=== PATIENT | male | born 1945 | race Caucasian/White ===

== ENCOUNTER → 2018-02-03 | Day surgery (SDC) | payer MEDICARE ==
[2018-02-02 11:26] LABS: BASOPHILS # (AUTO) 0.1 (0.0-0.1); EOSINOPHILS # (AUTO) 0.3 (0.0-0.4); EOSINOPHILS % 4.4 % (0.0-6.0); HEMATOCRIT 39.5 % (38.2-49.6); HEMOGLOBIN 13.5 g/dL (14.0-18.0); LYMPHOCYTES # (AUTO) 1.3 (1.0-3.2); LYMPHOCYTES % 21.8 % (18.0-39.1); MEAN CORPUSCULAR HEMOGLOBIN 29.6 pg (28-32); MEAN CORPUSCULAR HGB CONC 34.2 g/dL (31-35); MEAN CORPUSCULAR VOLUME 86.6 fL (81-99); MONOCYTES # (AUTO) 0.7 (0.2-0.8); MONOCYTES % 11.2 % (4.4-11.3); NEUTROPHILS # (AUTO) 3.8 (2.1-6.9); NEUTROPHILS % 61.3 % (38.7-80.0); PLATELET COUNT 259 x10e3/uL (140-360); RED BLOOD COUNT 4.56 x10e6/uL (4.3-5.7); RED CELL DISTRIBUTION WIDTH 11.9 % (11.7-14.4)
[2018-02-02 11:49] LABS: ALBUMIN/GLOBULIN RATIO 1.3 (0.8-2.0); ANION GAP 12.2 mmol/L (8-16); CALCIUM 9.8 mg/dL (8.4-10.2); CHOL/HDL RATIO 4.3 (3.9-4.7); CREATININE, SERUM 1.86 mg/dL (0.72-1.25); POTASSIUM 4.2 mmol/L (3.5-5.1)
[~2018-02-03] VITALS: Ht 182.9 cm; Wt 93.0 kg
[~2018-02-03] MED LIST: ALPRAZOLAM 0.5 MG TAB ONE; AMLODIPINE BESYL5 MG PO; ASPIRIN 325 MG TAB ONE; DIPHENHYDRAMINE HCL 25 MG CAP ONE; FENTANYL CITRATE/PF 100MCG/2 ML INJ ONE; GLIPIZIDE-METF1 EAC2 PO; HEPARIN SOD (PORCINE) 1000 UNIT/ML 30ML ONE; HEPARIN SOD/SOD CHLORIDE 2,000 ML ONE; IOPAMIDOL 300MG/ML 100 ML INFUS..BTL IV ONE; LANTUS 3ML100 UNITS/ SQ; LIDOCAINE HCL 2% LOCAL 20 ML VIAL ONE; LOSARTAN-HCTZ1 EAC1 PO; METOPROLOL SUCC50 MG PO; MIDAZOLAM HCL 2 MG/2 ML VIAL ONE; NITROGLYCERIN/D5W 200 MCG/ML 250 ML ONE; OMEPRAZOLE40 MG PO; PRASUGREL 10 MG TAB ONE; PRAVASTATIN SOD20 MG PO; PROTAMINE SULFATE 10 MG/ML 5 ML VIAL ONE; SODIUM CHLORIDE 0.9% 100 ML 100 ML ONE; SODIUM CHLORIDE 0.9% 1000ML 1,000 ML ONE; SODIUM CHLORIDE 0.9% 500ML 0 ML ONE; VERAPAMIL HCL 2.5 MG/ML 2 ML VIAL ONE
--- NOTE | 2018-02-03 10:15 | Operative Report ---
DATE OF PROCEDURE: February 03, 2018 INDICATIONS: Peripheral arterial disease with critical limb ischemia of the left lower extremity. PROCEDURES PERFORMED 1. Third-order catheter placement with antegrade sheath placement from the left common artery to the left popliteal artery and unilateral extremity angiogram. 2. Additional third-order catheter replacement from the left femoral artery to the left dorsalis pedal artery with unilateral extremity angiogram. 3. Atherectomy and drug-coated balloon angioplasty of the left posterior tibial artery. 4. Secondary thrombectomy of the left posterior tibial artery. 5. Atherectomy and drug-coated balloon angioplasty of the left anterior tibial artery. COMPLICATIONS: None. BLOOD LOSS: 10 mL. RECOMMENDATIONS: Dual antiplatelet artery for at least 3 months. Access was obtained in the left femoral artery in an antegrade fashion. A 6-Malay, 23-cm sheath was placed. Angiography demonstrated minimal disease in the femoral popliteal arteries. Left anterior and posterior tibial artery had significant 90% stenosis with poor flow. A decision was made to intervene on the left anterior and posterior tibial arteries. The patient received 10,000 units of intra-arterial heparin. The lesions were crossed using a Glidewire. Orbital atherectomy of both anterior and posterior tibial arteries were performed sequentially. Angioplasty was then performed and 4 mm drug-coated balloons were performed. Large clots were visible. Thrombus in the left anterior tibial artery for which secondary manual aspiration thrombectomy was needed. Final angiography demonstrated excellent 3-vessel runoff to the left foot with a complete plantar arch. The patient received 100 mg of intravenous protamine for reversal of heparin effect. Sheath was discontinued. The patient will remain in the hospital for 6 hours and discharged home same day. Job#: [id number] DARIAN
== END | disposition home or self-care (01) ==
LOC: CATH LAB 06:43
PROVIDERS: ATTEND Internal Medicine Interventional Cardiology
DX: I70.208 Unspecified atherosclerosis of native arteries of extremities, other extremity (principal); I87.2 Venous insufficiency (chronic) (peripheral); E11.9 Type 2 diabetes mellitus without complications; Z01.812 Encounter for preprocedural laboratory examination; Z79.4 Long term (current) use of insulin
CPT/HCPCS: 36415; 37186; 37229; 80053; 80061; 85025; C1724; C1725 ×3; C1766; C1769 ×2; J1644; J2001; J2250; J2720; J7030; Q9967; 36140; 75710; 77002; 92924; 92925; J7040

== ENCOUNTER 2018-06-15 18:03 | Observation (INO) | payer MEDICARE ==
[~2018-06-15] VITALS: Ht 182.9 cm; Wt 93.9 kg
[~2018-06-15 18:03] MED LIST changes: -PLAVIX75 MG PO
[2018-06-15] MEDS ORDERED: SODIUM CHLORIDE 0.9% 1000ML 1,000 ML IV STA (18:48)
[2018-06-15] MEDS ORDERED: ASPIRIN 81 MG CHEW TAB PO ONE (19:00)
[2018-06-15] MEDS ORDERED: MORPHINE SULFATE 2 MG/ML SYR IV STA (21:30)
[2018-06-15] MEDS ORDERED: ONDANSETRON HCL INJ 2 MG/ML VIAL IV STA (21:30)
[2018-06-15] MEDS ORDERED: SODIUM CHLORIDE 0.9% 1000ML 1,000 ML ONE (21:49)
[2018-06-15 22:06] LABS: BASOPHILS # (AUTO) 0.1 (0.0-0.1); BASOPHILS % 0.5 % (0.0-1.0); EOSINOPHILS % 0.3 % (0.0-6.0); HEMATOCRIT 30.3 % (38.2-49.6); HEMOGLOBIN 9.8 g/dL (14.0-18.0); LYMPHOCYTES # (AUTO) 1.1 (1.0-3.2); MEAN CORPUSCULAR HEMOGLOBIN 28.7 pg (28-32); MEAN CORPUSCULAR HGB CONC 32.3 g/dL (31-35); MEAN CORPUSCULAR VOLUME 88.9 fL (81-99); MONOCYTES # (AUTO) 1.8 (0.2-0.8); MONOCYTES % 12.5 % (4.4-11.3); NEUTROPHILS # (AUTO) 11.1 (2.1-6.9); NEUTROPHILS % 77.9 % (38.7-80.0); PLATELET COUNT 456 x10e3/uL (140-360); RED BLOOD COUNT 3.41 x10e6/uL (4.3-5.7); RED CELL DISTRIBUTION WIDTH 12.7 % (11.7-14.4)
[2018-06-15 22:16] LABS: ALBUMIN 3.2 g/dL (3.5-5.0); ALBUMIN/GLOBULIN RATIO 0.8 (0.8-2.0)
[2018-06-15 22:22] LABS: CREATINE KINASE MB 1.8 ng/mL (0-5.0)
[2018-06-15 22:27] LABS: CALCIUM 9.6 mg/dL (8.4-10.2)
[2018-06-15] MEDS ORDERED: PLAVIX75 MG PO (22:37)
[2018-06-16] MEDS ORDERED: MORPHINE SULFATE 2 MG/ML SYR IV PRN (00:15)
[2018-06-16] MEDS ORDERED: ONDANSETRON HCL INJ 2 MG/ML VIAL IV PRN (00:15)
[2018-06-16] MEDS ORDERED: DEXTROSE 50% SYRINGE 50 ML IV PRN (00:15)
[2018-06-16] MEDS: INSULIN REGULAR, HUMAN 100 UNIT/1 ML 3ML VIAL SQ SCH ×4 (00:49→21:17)
[2018-06-16] MEDS: SODIUM CHLORIDE 0.9% 1000ML 1,000 ML IV SCH ×3 (03:00→16:09)
[2018-06-16 03:41] LABS: BILIRUBIN,URINE NEGATIVE (NEGATIVE); CLARITY,URINE CLEAR (CLEAR); COLOR,URINE YELLOW (YELLOW); KETONES,URINE TRACE (NEGATIVE); LEUKOCYTE ESTERASE ,URINE NEGATIVE (NEGATIVE); NITRITE,URINE NEGATIVE (NEGATIVE); PROTEIN,URINE DIPSTICK 1+ (NEGATIVE); URINE UROBILINOGEN 0.2 mg/dL (0.2 - 1)
[2018-06-16 03:48] LABS: BACTERIA,URINE FEW /HPF; EPITHELIAL CELLS,URINE RARE /LPF; RBC,URINE 0-5 /HPF (0-5); WBC,URINE (MAN) 0-5 /HPF (0-5)
[2018-06-16 06:40] LABS: CREATINE KINASE MB 1.5 ng/mL (0-5.0)
[2018-06-16] MEDS: LOSARTAN POTASSIUM 100 MG TAB PO SCH (08:30)
[2018-06-16] MEDS: PANTOPRAZOLE SOD 40 MG TABEC PO SCH (08:30)
[2018-06-16] MEDS: METOPROLOL SUCCINATE 50 MG TAB XL PO SCH (08:30)
[2018-06-16] MEDS ORDERED: AMLODIPINE BESYLATE 5 MG TAB PO SCH (09:00)
[2018-06-16] MEDS ORDERED: HYDROCHLOROTHIAZIDE 25 MG TAB PO SCH (09:00)
[2018-06-16] MEDS ORDERED: MORPHINE SULFATE INJ 4 MG/ML INJ IV PRN (09:00)
[2018-06-16 14:00] VITALS: BP 158/73
[2018-06-16 15:22] VITALS: BP 158/73
[2018-06-16 16:00] VITALS: BP 140/67
[2018-06-16 16:14] LABS: CREATINE KINASE MB 2.1 ng/mL (0-5.0)
[2018-06-16] MEDS: DIPHENHYDRAMINE HCL INJ 50 MG/ML VIAL IV PRN (18:05)
[2018-06-16 20:00] VITALS: BP 180/86
--- NOTE | 2018-06-16 20:11 | Consultation ---
DATE OF CONSULTATION: June 16, 2018 CARDIOLOGY CONSULT NOTE REASON FOR CONSULTATION: Tachycardia. CHIEF COMPLAINT: "They told me my heart rate was too high and I should go to the hospital and get checked out for blood clot." HPI: Patient is a 73-year-old man, who was seen in our clinic yesterday for follow up of his vein ablation procedure done 3 months prior. When he presented to the clinic, he was noted to be tachycardic with heart rates in the 120s. Given that he has had a recent hip replacement, he was sent to the ER to get evaluated for possible pulmonary embolism. He denies any chest pain, shortness of breath or diaphoresis. PAST MEDICAL HISTORY 1. Venous insufficiency. 2. Hip osteoarthritis, status post hip replacement recently. 3. Hypertension. 4. Hyperlipidemia. SOCIAL HISTORY: Denies any smoking, alcohol or drug use. FAMILY HISTORY: No family history of early CAD or sudden cardiac . REVIEW OF SYSTEMS: Ten-point review of systems was performed described as above, otherwise negative. PHYSICAL EXAMINATION VITAL SIGNS: Temperature 98.4, pulse 85, respiratory rate 16, blood pressure 140/67, satting 98% on room air. GENERAL: Well-developed white male, in no acute distress. CARDIOVASCULAR: Regular rate and rhythm, normal S1, S2. No murmurs, rubs or gallops. Palpable carotid pulses. Palpable radial pulses left greater than right. Palpable pedal pulses. No lower extremity edema. Varicosities bilaterally, left greater than right. LUNGS: Clear to auscultation bilaterally. No respiratory distress. ABDOMEN: Soft, nontender, nondistended. No masses. NEURO AND PSYCH: Alert and oriented to person, place, and time. Normal affect. MEDICATIONS: Outpatient and inpatient medications reviewed. LABORATORY DATA: Reviewed. Notable for a white count of 14.23. Creatinine of 2.0, BUN of 29. On presentation, CK was 229 with negative troponins times 3. CK has since normalized after hydration. IMAGING DATA: Reviewed. V/Q scan with very low probability of PE. TELEMETRY DATA: Reviewed shows sinus tachycardia. ECG: Reviewed shows sinus tachycardia. ASSESSMENT AND PLAN 1. Sinus tachycardia. 2. Dehydration. 3. Possible urinary tract infection. 4. History of peripheral artery disease. 5. History of peripheral venous disease. PLAN: Patient's heart rate has improved significantly after hydration. Continue IV fluids. Cardiovascular exam is normal. No cardiovascular symptoms. At this time, V/Q scan was very low probability for pulmonary embolism. No further cardiovascular test recommended at this time. Treatment of possible infection per primary team. Will continue to follow. Thank you for this consult. Job#: [id number] CQ
[2018-06-16] MEDS: SIMVASTATIN 20 MG TAB PO SCH (20:58)
[2018-06-17] VITALS (7 sets, daily range): BP systolic 138–172; BP diastolic 65–77
[2018-06-17] MEDS: DIPHENHYDRAMINE HCL INJ 50 MG/ML VIAL IV PRN (00:50)
[2018-06-17] MEDS: SODIUM CHLORIDE 0.9% 1000ML 1,000 ML IV SCH ×2 (00:50→07:43)
[2018-06-17 03:29] LABS: BASOPHILS # (AUTO) 0.1 (0.0-0.1); BASOPHILS % 0.5 % (0.0-1.0); EOSINOPHILS # (AUTO) 0.1 (0.0-0.4); EOSINOPHILS % 1.3 % (0.0-6.0); HEMATOCRIT 25.4 % (38.2-49.6); HEMOGLOBIN 8.5 g/dL (14.0-18.0); LYMPHOCYTES # (AUTO) 1.3 (1.0-3.2); LYMPHOCYTES % 11.8 % (18.0-39.1); MEAN CORPUSCULAR HEMOGLOBIN 29.5 pg (28-32); MEAN CORPUSCULAR HGB CONC 33.5 g/dL (31-35); MEAN CORPUSCULAR VOLUME 88.2 fL (81-99); MONOCYTES # (AUTO) 1.5 (0.2-0.8); MONOCYTES % 13.7 % (4.4-11.3); NEUTROPHILS % 71.9 % (38.7-80.0); PLATELET COUNT 465 x10e3/uL (140-360); RED BLOOD COUNT 2.88 x10e6/uL (4.3-5.7); RED CELL DISTRIBUTION WIDTH 12.3 % (11.7-14.4)
[2018-06-17 03:41] LABS: MAGNESIUM 1.7 MG/DL (1.3-2.1)
[2018-06-17 03:50] LABS: ALBUMIN 2.7 g/dL (3.5-5.0); ALBUMIN/GLOBULIN RATIO 0.8 (0.8-2.0); ANION GAP 15.2 mmol/L (8-16); CALCIUM 8.9 mg/dL (8.4-10.2); CREATININE, SERUM 1.71 mg/dL (0.72-1.25); POTASSIUM 4.2 mmol/L (3.5-5.1)
[2018-06-17 04:10] LABS: FREE T4 (FREE THYROXINE) 0.89 ng/dL (0.9-1.8); THYROID STIMULATING HORMONE 1.351 uIU/mL (0.350-4.940)
[2018-06-17 04:48] LABS: B-TYPE NATRIURETIC PEPTIDE2 49.8 pg/mL (0-100)
--- NOTE | 2018-06-17 06:59 | Diagnostic Imaging Report ---
EXAMINATION: CHEST SINGLE (PORTABLE) INDICATION: Pneumonia. COMPARISON: None FINDINGS: TUBES and LINES: None. LUNGS: Lungs are well inflated. Lungs are clear. There is no evidence of pneumonia or pulmonary edema. PLEURA: No pleural effusion or pneumothorax. HEART AND MEDIASTINUM: The cardiomediastinal silhouette is unremarkable. BONES AND SOFT TISSUES: No acute osseous lesion. Soft tissues are unremarkable. UPPER ABDOMEN: No free air under the diaphragm. IMPRESSION: No acute thoracic abnormality. Signed by: Dr. Eusebio Gamez M.D. on 06/17/2018 6:56 AM
[2018-06-17] MEDS: LEVOFLOXACIN 500MG/D5W 100ML 100 ML IV SCH (07:42)
[2018-06-17] MEDS: METOPROLOL SUCCINATE 50 MG TAB XL PO SCH (08:45)
[2018-06-17] MEDS: PANTOPRAZOLE SOD 40 MG TABEC PO SCH (08:45)
[2018-06-17] MEDS: LOSARTAN POTASSIUM 100 MG TAB PO SCH (08:45)
[2018-06-17] MEDS ORDERED: AMLODIPINE BESYLATE 5 MG TAB PO SCH (09:00)
[2018-06-17] MEDS: INSULIN LISPRO 100 UNIT/1 ML 3ML VIAL SQ SCH ×4 (09:08→22:07)
--- NOTE | 2018-06-17 09:17 | Diagnostic Imaging Report ---
Exam: Head CT without contrast History: Altered mental status, possible CVA Comparison studies: None Technique: Axial images were obtained from the skull base to the vertex. Coronal and sagittal images reconstructed from the axial data. Radiation dose: Total DLP: 921 mGy*cm. Estimated effective dose: DLP x 0.015 Intravenous contrast: None Findings: Scalp: No abnormalities. Bones: No fractures, blastic or lytic lesions. Brain sulci: Mildly prominent. Ventricles: Mild compensatory dilatation. No hydrocephalus. Extra-axial spaces: No masses, no fluid collection. Parenchyma: No mass, acute hemorrhage or acute or chronic cortical vascular insults. Scattered hypodensities in the supratentorial white matter are nonspecific but most compatible with chronic microvascular ischemic changes. Sellar/suprasellar region: No abnormalities. Craniocervical junction: Patent foramen magnum. No Chiari one malformation. Incidental findings: Atherosclerotic calcifications in the carotid siphons and intradural vertebral arteries. Small nonspecific right frontoethmoidal secretions. IMPRESSION: No acute intracranial abnormalities. Specifically, no acute hemorrhage or acute cortical vascular insult. Chronic findings: 1. Mild generalized volume loss. 2. Mild microvascular ischemic changes. Signed by: Dr. Tom Roque M.D. on 06/17/2018 8:07 AM
--- NOTE | 2018-06-17 13:43 | Progress Note ---
DATE: June 17, 2018 Mr. Otero feels much better after intravenous hydration. Creatinine has improved to 1.7. PHYSICAL EXAMINATION VITALS: Afebrile, heart rate 83, blood pressure 158/72. CARDIOVASCULAR: Regular rhythm. S4 gallop. LUNGS: Clear to auscultation bilaterally. Telemetry shows sinus rhythm. ASSESSMENT: Dehydration with sinus tachycardia and possible sepsis. RECOMMENDATIONS: Continue IV fluids. Echocardiogram was performed in the office, which shows hyperdynamic LV function and normal right ventricular function. At this point, no further cardiac evaluation. Further evaluation performed in the office. Patient is stable for discharge from the cardiac standpoint. Job#: [id number] DARIAN
[2018-06-17] MEDS ORDERED: INSULIN DETEMIR 100 UNIT/ML PEN SQ SCH (21:00)
[2018-06-17] MEDS: SIMVASTATIN 20 MG TAB PO SCH (22:06)
[2018-06-17] MEDS: INSULIN DETEMIR 100 UNIT/ML PEN SQ SCH (22:07)
[2018-06-18] VITALS (9 sets, daily range): BP systolic 128–166; BP diastolic 66–78
[2018-06-18 05:43] LABS: ALBUMIN 2.6 g/dL (3.5-5.0); ANION GAP 14.9 mmol/L (8-16); BILIRUBIN,DIRECT 0.2 mg/dL (0.0-0.5); CALCIUM 9.1 mg/dL (8.4-10.2); CREATININE, SERUM 1.73 mg/dL (0.72-1.25); MAGNESIUM 1.7 MG/DL (1.3-2.1); POTASSIUM 3.9 mmol/L (3.5-5.1)
[2018-06-18 06:20] LABS: FOLATE 15.7 ng/mL (7.0-15.4)
[2018-06-18] MEDS: SODIUM CHLORIDE 0.9% 1000ML 1,000 ML IV SCH (06:22)
[2018-06-18] MEDS: LEVOFLOXACIN 500MG/D5W 100ML 100 ML IV SCH (06:22)
[2018-06-18 06:38] LABS: BASOPHILS % 0.4 % (0.0-1.0); EOSINOPHILS # (AUTO) 0.3 (0.0-0.4); EOSINOPHILS % 2.5 % (0.0-6.0); HEMATOCRIT 25.8 % (38.2-49.6); HEMOGLOBIN 8.4 g/dL (14.0-18.0); LYMPHOCYTES # (AUTO) 1.2 (1.0-3.2); MEAN CORPUSCULAR HGB CONC 32.6 g/dL (31-35); MONOCYTES # (AUTO) 1.4 (0.2-0.8); MONOCYTES % 13.2 % (4.4-11.3); NEUTROPHILS # (AUTO) 7.3 (2.1-6.9); PLATELET COUNT 494 x10e3/uL (140-360); RED CELL DISTRIBUTION WIDTH 12.4 % (11.7-14.4)
[2018-06-18 06:57] LABS: % IRON SATURATION 9 % (15-50); IRON 24 ug/dL (65-175); TOTAL IRON BINDING CAPACITY 267 ug/dL (261-478); TRANSFERRIN 191 mg/dL (174-364)
[2018-06-18] MEDS: INSULIN LISPRO 100 UNIT/1 ML 3ML VIAL SQ SCH ×4 (09:20→21:29)
[2018-06-18] MEDS: LOSARTAN POTASSIUM 100 MG TAB PO SCH (10:18)
[2018-06-18] MEDS: METOPROLOL SUCCINATE 50 MG TAB XL PO SCH (10:19)
[2018-06-18] MEDS: ASCORBIC ACID 500 MG TAB PO SCH ×2 (10:19→16:35)
[2018-06-18] MEDS: NIFEDIPINE CR 30 MG TAB PO SCH (10:19)
[2018-06-18] MEDS: PANTOPRAZOLE SOD 40 MG TABEC PO SCH (10:19)
--- NOTE | 2018-06-18 15:04 | Progress Note ---
DATE: June 18, 2018 CARDIOLOGY PROGRESS NOTE SUBJECTIVE: Mr. Otero is asymptomatic. He has been walking in the hallway. OBJECTIVE VITAL SIGNS: Afebrile. Heart rate 74. Blood pressure 149/69. O2 sat 99%. CARDIOVASCULAR: Regular rhythm. S4 gallop. LUNGS: Clear to auscultation bilaterally. ABDOMEN: Is soft. EXTREMITIES: 1+ edema. Hemoglobin 8.4. Serum creatinine 1.7. ASSESSMENT: 1. Dehydration. 2. Acute renal failure. PLAN: Cardiac-vasquez the patient is doing well. His sinus tachycardia has resolved. He is stable for discharge when okay with primary care physician. Job#: [id number]
[2018-06-18] MEDS: FERROUS SULFATE 325 MG TAB PO SCH (16:35)
[2018-06-18] MEDS: SIMVASTATIN 20 MG TAB PO SCH (21:28)
[2018-06-18] MEDS: INSULIN DETEMIR 100 UNIT/ML PEN SQ SCH (21:29)
[2018-06-19] MEDS: DIPHENHYDRAMINE HCL INJ 50 MG/ML VIAL IV PRN (00:23)
[2018-06-19 00:41] VITALS: BP 154/72
[2018-06-19 04:25] VITALS: BP 147/76
[2018-06-19 05:16] LABS: BASOPHILS # (AUTO) 0.1 (0.0-0.1); BASOPHILS % 0.6 % (0.0-1.0); EOSINOPHILS # (AUTO) 0.3 (0.0-0.4); EOSINOPHILS % 3.3 % (0.0-6.0); HEMATOCRIT 26.5 % (38.2-49.6); HEMOGLOBIN 8.7 g/dL (14.0-18.0); LYMPHOCYTES # (AUTO) 1.2 (1.0-3.2); LYMPHOCYTES % 12.1 % (18.0-39.1); MEAN CORPUSCULAR HEMOGLOBIN 28.8 pg (28-32); MEAN CORPUSCULAR HGB CONC 32.8 g/dL (31-35); MEAN CORPUSCULAR VOLUME 87.7 fL (81-99); MONOCYTES # (AUTO) 1.2 (0.2-0.8); MONOCYTES % 12.4 % (4.4-11.3); NEUTROPHILS % 70.6 % (38.7-80.0); PLATELET COUNT 539 x10e3/uL (140-360); RED BLOOD COUNT 3.02 x10e6/uL (4.3-5.7); RED CELL DISTRIBUTION WIDTH 12.2 % (11.7-14.4)
[2018-06-19 05:43] LABS: ANION GAP 13.9 mmol/L (8-16); CALCIUM 9.3 mg/dL (8.4-10.2); CREATININE, SERUM 1.74 mg/dL (0.72-1.25); MAGNESIUM 1.8 MG/DL (1.3-2.1); POTASSIUM 3.9 mmol/L (3.5-5.1)
[2018-06-19] MEDS: INSULIN LISPRO 100 UNIT/1 ML 3ML VIAL SQ SCH (07:30)
[2018-06-19 07:39] VITALS: BP 155/74
[2018-06-19] MEDS: LEVOFLOXACIN 500MG/D5W 100ML 100 ML IV SCH (08:04)
[2018-06-19] MEDS: FERROUS SULFATE 325 MG TAB PO SCH (08:04)
[2018-06-19] MEDS ORDERED: NIFEDIPINE ER30 M1 PO (08:31)
[2018-06-19] MEDS ORDERED: FERROUS SULFAT325 MG PO (08:31)
[2018-06-19] MEDS ORDERED: ASCORBIC ACID500 MG PO (08:31)
[2018-06-19] MEDS ORDERED: LEVAQUIN500 MG PO (08:31)
[2018-06-19] MEDS: METOPROLOL SUCCINATE 50 MG TAB XL PO SCH (08:54)
[2018-06-19] MEDS: LOSARTAN POTASSIUM 100 MG TAB PO SCH (08:54)
[2018-06-19] MEDS: ASCORBIC ACID 500 MG TAB PO SCH (08:54)
[2018-06-19] MEDS: PANTOPRAZOLE SOD 40 MG TABEC PO SCH (08:54)
[2018-06-19] MEDS: NIFEDIPINE CR 30 MG TAB PO SCH (08:54)
[2018-06-19 11:01] VITALS: BP_SYST 142; BP_SYST 155; BP_DIAS 65; BP_DIAS 74
--- NOTE | 2018-06-19 16:34 | Discharge Summary ---
ADMISSION DIAGNOSES 1. Tachycardia. 2. Hypertension. 3. Hyperlipidemia. 4. Type 2 diabetes. 5. Acute kidney injury versus chronic kidney disease. 6. Hyponatremia. 7. Leukocytosis. DISCHARGE DIAGNOSES 1. Tachycardia. 2. Hypertension. 3. Hyperlipidemia. 4. Type 2 diabetes. 5. Acute kidney injury versus chronic kidney disease. 6. Hyponatremia. 7. Leukocytosis. 8. Urinary tract infection. 9. Anemia. 10. Ruled out pulmonary embolism. HISTORY: Patient has a history of type 2 diabetes, hyperlipidemia, GERD, hypertension. Surgical history of appendectomy, right hip replacement and left total knee replacement. HOSPITAL COURSE: A 73-year-old male had right hip surgery last . The following Tuesday, he started to feel not right. He could not explain his symptoms. He denied chest pain, dizziness, shortness of breath, palpitations. He had a followup appointment with Dr. Patel for what he explained as an angioplasty. It was his 3-month appointment. He was told to go straight to the ER by Dr. Patel because his heart rate was in the 200s. Patient remained asymptomatic. On admission patient was placed on telemetry, was running sinus rhythm. He had a V/Q scan which was negative. TSH and free T4 were within normal limits. Patient started on metoprolol, and Cardiology consulted. Chest x-ray showed no acute abnormality. CT of the brain showed no acute intracranial abnormalities. Per Cardiology, due to the normal sinus rhythm and negative V/Q scan, the patient could discharge home, but patient was found to have enterococcus in his urine. Blood cultures were negative. Patient discharged home after finding the urine culture results. He was resumed on home medications except Norvasc. Instead, he will take nifedipine at home. He will discharge with 4 more days of Levaquin, iron, vitamin C and nifedipine. Patient was instructed to follow up with Cardiology this week as discussed and Primary Care in 1 to 2 weeks with a blood pressure log. Patient and understand discharge instructions and agree to plan. Dictated by: Lima Moralez NP MELECIO MAURO MD Job#: [id number] EV
== END 2018-06-19 11:28 | disposition home or self-care (01) ==
LOC: ER 18:03 → ERHOLD 06-16 00:09 → IMCU 06-16 14:07
PROVIDERS: ADMIT Internal Medicine; ATTEND Internal Medicine
DX: R00.0 Tachycardia, unspecified (principal); I12.9 Hypertensive chronic kidney disease with stage 1 through stage 4 chronic kidney disease, or unspecified chronic kidney disease; Z96.642 Presence of left artificial hip joint; E78.5 Hyperlipidemia, unspecified; K21.9 Gastro-esophageal reflux disease without esophagitis; Z88.0 Allergy status to penicillin; E87.1 Hypo-osmolality and hyponatremia; I73.9 Peripheral vascular disease, unspecified; E86.0 Dehydration; N17.9 Acute kidney failure, unspecified; D64.9 Anemia, unspecified; D72.829 Elevated white blood cell count, unspecified; N39.0 Urinary tract infection, site not specified; E11.22 Type 2 diabetes mellitus with diabetic chronic kidney disease; N18.9 Chronic kidney disease, unspecified
CPT/HCPCS: 36415 ×4; 70450; 71045; 80048 ×2; 80053 ×2; 80076; 81001; 82140; 82270; 82550 ×2; 82553 ×2; 82607; 82746; 82948 ×4; 83036; 83540; 83735 ×3; 83880; 84439; 84443; 84466; 84484 ×2; 85025 ×4; 87040; 87086; 87186; 87400; 93005; 96372; 96374; 96376; 97116; 97161; 99285; G0378 ×4; J1200 ×3; J1956 ×3; J2270; J2405; J7030 ×4; S0164 ×4

== ENCOUNTER → 2018-06-15 | Outpatient (CLI) | payer MEDICARE ==
[~2018-06-15] MED LIST changes: -ALPRAZOLAM 0.5 MG TAB ONE; -ASPIRIN 325 MG TAB ONE; -DIPHENHYDRAMINE HCL 25 MG CAP ONE; -FENTANYL CITRATE/PF 100MCG/2 ML INJ ONE; -HEPARIN SOD (PORCINE) 1000 UNIT/ML 30ML ONE; -HEPARIN SOD/SOD CHLORIDE 2,000 ML ONE; -IOPAMIDOL 300MG/ML 100 ML INFUS..BTL IV ONE; -LIDOCAINE HCL 2% LOCAL 20 ML VIAL ONE; -MIDAZOLAM HCL 2 MG/2 ML VIAL ONE; -NITROGLYCERIN/D5W 200 MCG/ML 250 ML ONE; +PLAVIX75 MG PO; -PRASUGREL 10 MG TAB ONE; -PROTAMINE SULFATE 10 MG/ML 5 ML VIAL ONE; -SODIUM CHLORIDE 0.9% 100 ML 100 ML ONE; -SODIUM CHLORIDE 0.9% 1000ML 1,000 ML ONE; -SODIUM CHLORIDE 0.9% 500ML 0 ML ONE; -VERAPAMIL HCL 2.5 MG/ML 2 ML VIAL ONE
[2018-06-15 13:14] LABS: CREATININE, SERUM 2.04 mg/dL (0.72-1.25)
--- NOTE | 2018-06-15 17:29 | Diagnostic Imaging Report ---
Ventilation/perfusion lung scan Clinical Information: 73 M 1 week s/p hip replacement with SOB and generalized weakness x 3 days. Has prior history of PE. Patient is on Plavix for hip replacement and upcoming lower extremity vascular procedure. Comparison: None Discussion: Xenon-133 gas 20 mCi was administered via inhalation. Dynamic images of the lungs in the posterior projection were obtained through single breath, equilibrium, and washout phases. Distribution of tracer activity is mildly irregular throughout the lungs. There are no segmental ventilatory defects. Washout of tracer is diffusely delayed without air trapping. Perfusion images of the lungs were obtained in multiple projections following intravenous administration of approximately 6.3 mCi of Tc-99m MAA. Distribution of tracer is mildly irregular throughout the lungs. The contours of the lungs are well demarcated. There are no segmental perfusion defects of any size. The cardiomediastinal silhouette is unremarkable. Impression: Scan findings represent a VERY LOW probability for acute pulmonary embolic disease based on the PIOPED II criteria. Scan evidence of obstructive lung disease. Preliminary report was rendered at 515 pm by Tonya Guzman MD. Signed by: Dr. Yamini Rodas M.D. on 06/15/2018 7:03 PM
== END ==
LOC: CT 12:17
PROVIDERS: ATTEND Internal Medicine Interventional Cardiology
DX: I26.99 Other pulmonary embolism without acute cor pulmonale (principal)
CPT/HCPCS: 36415; 78582; 82565; 84520; A9540; A9558; 82948

== ENCOUNTER → 2018-07-10 | Day surgery (SDC) | payer MEDICARE ==
[2018-07-07 13:50] LABS: BASOPHILS # (AUTO) 0.1 (0.0-0.1); BASOPHILS % 0.7 % (0.0-1.0); EOSINOPHILS # (AUTO) 0.3 (0.0-0.4); EOSINOPHILS % 3.6 % (0.0-6.0); HEMATOCRIT 31.3 % (38.2-49.6); HEMOGLOBIN 10.1 g/dL (14.0-18.0); LYMPHOCYTES # (AUTO) 1.1 (1.0-3.2); LYMPHOCYTES % 16.1 % (18.0-39.1); MEAN CORPUSCULAR HEMOGLOBIN 28.9 pg (28-32); MEAN CORPUSCULAR HGB CONC 32.3 g/dL (31-35); MEAN CORPUSCULAR VOLUME 89.4 fL (81-99); MONOCYTES # (AUTO) 0.6 (0.2-0.8); MONOCYTES % 9.2 % (4.4-11.3); NEUTROPHILS # (AUTO) 4.9 (2.1-6.9); NEUTROPHILS % 70.1 % (38.7-80.0); PLATELET COUNT 329 x10e3/uL (140-360); RED CELL DISTRIBUTION WIDTH 12.3 % (11.7-14.4)
[2018-07-07 14:14] LABS: ALBUMIN 3.4 g/dL (3.5-5.0); ANION GAP 16.3 mmol/L (8-16); CALCIUM 9.6 mg/dL (8.4-10.2); CHOL/HDL RATIO 4.8 (3.9-4.7); CREATININE, SERUM 1.88 mg/dL (0.72-1.25)
[2018-07-07 14:15] LABS: POTASSIUM 5.3 mmol/L (3.5-5.1)
[2018-07-10] VITALS (12 sets, daily range): BP systolic 136–165; BP diastolic 66–95
[~2018-07-10] VITALS: Ht 182.9 cm; Wt 89.8 kg
[~2018-07-10] MED LIST changes: +ALPRAZOLAM 0.5 MG TAB ONE; +ASCORBIC ACID500 MG PO; +DIPHENHYDRAMINE HCL 25 MG CAP ONE; +FENTANYL CITRATE/PF 100MCG/2 ML INJ ONE; +FERROUS SULFAT325 MG PO; +HEPARIN SOD (PORCINE) 1000 UNIT/ML 30ML ONE; +HEPARIN SOD/SOD CHLORIDE 2,000 ML ONE; +IOPAMIDOL 370 MG/ML 200 ML INFUS..BTL INJ ONE; +LEVAQUIN500 MG PO; +LIDOCAINE HCL 2% LOCAL 20 ML VIAL ONE; +MIDAZOLAM HCL 2 MG/2 ML VIAL ONE; +NIFEDIPINE ER30 M1 PO; +NITROGLYCERIN/D5W 200 MCG/ML 250 ML ONE; +PLAVIX75 MG PO; +PRASUGREL 10 MG TAB ONE; +SODIUM CHLORIDE 0.9% 1000ML 1,000 ML ONE; +VERAPAMIL HCL 2.5 MG/ML 2 ML VIAL ONE
--- NOTE | 2018-07-10 14:55 | Operative Report ---
DATE OF PROCEDURE: July 10, 2018 INDICATIONS: Coronary artery disease. Abnormal stress test with apical ischemia. PROCEDURES PERFORMED 1. Left heart catheterization, selective coronary angiogram. 1. Percutaneous transluminal coronary angioplasty and stent placement to the proximal left anterior descending artery. 2. Deployment of right wrist transradial band. COMPLICATIONS: None. RECOMMENDATIONS: Dual antiplatelet therapy for at least 6 months. Access was obtained in the right radial artery using ultrasound guidance. A 5-Tongan sheath was placed. Diagnostic coronary angiogram revealed a patent left main, left anterior descending artery moderately calcified, proximal 70% stenosis. The remaining diagonal arteries, remaining left anterior descending arteries, circumflex obtuse marginal, right coronary artery had mild 10% to 20% luminal stenosis. LV end-diastolic pressure of 14. No gradient across the aortic valve on pullback. Decision was made to intervene on the left anterior descending artery. The patient received 10,000 units of intra-arterial heparin and 60 mg of oral Effient for anticoagulation. The left main was cannulated using an EBU 3.75, 5-Tongan guiding catheter. A short Runthrough wire was advanced across the left anterior descending artery lesion to the distal vessel for support. Primary stent with a 2.75 x 20 mm Resolute [place] was performed at 12 atmospheres postdilatation to the mid and proximal ends of the stent with a 3 mm balloon at 18 to 24 atmospheres with excellent end result of less than 10% residual stenosis, [place]AS[place]Y 3 flow, no complications. Guide wire and sheath were removed, TR band applied. Patient will be observed in the hospital for 6 hours prior to being discharged home. Job#: [id number] EV
== END | disposition home or self-care (01) ==
LOC: CATH LAB 10:42
PROVIDERS: ATTEND Internal Medicine Interventional Cardiology
DX: I25.10 Atherosclerotic heart disease of native coronary artery without angina pectoris (principal); R94.39 Abnormal result of other cardiovascular function study; E78.00 Pure hypercholesterolemia, unspecified; R03.0 Elevated blood-pressure reading, without diagnosis of hypertension; E11.9 Type 2 diabetes mellitus without complications; Z88.0 Allergy status to penicillin; Z01.812 Encounter for preprocedural laboratory examination; Z79.4 Long term (current) use of insulin
CPT/HCPCS: 93458; C9600; 36415; 80053; 80061; 85025; 92928; C1817; J1644; J2001; J2250; J7030; Q9967

== ENCOUNTER 2019-04-19 17:26 | Inpatient (IN) | payer MEDICARE ==
[~2019-04-19] VITALS: Ht 182.9 cm; Wt 89.8 kg
[~2019-04-19 17:26] MED LIST changes: -ALPRAZOLAM 0.5 MG TAB ONE; -DIPHENHYDRAMINE HCL 25 MG CAP ONE; -FENTANYL CITRATE/PF 100MCG/2 ML INJ ONE; -HEPARIN SOD (PORCINE) 1000 UNIT/ML 30ML ONE; -HEPARIN SOD/SOD CHLORIDE 2,000 ML ONE; -IOPAMIDOL 370 MG/ML 200 ML INFUS..BTL INJ ONE; -LIDOCAINE HCL 2% LOCAL 20 ML VIAL ONE; -MIDAZOLAM HCL 2 MG/2 ML VIAL ONE; -NITROGLYCERIN/D5W 200 MCG/ML 250 ML ONE; -PRASUGREL 10 MG TAB ONE; -SODIUM CHLORIDE 0.9% 1000ML 1,000 ML ONE; -VERAPAMIL HCL 2.5 MG/ML 2 ML VIAL ONE
--- OUTSIDE RECORDS SUMMARY | 2019-04-19 17:29 | XMS REPORT | Clinical Summary ---
Author Author [facility] Organization [facility] Address Unknown Phone Unavailable Care Team Providers Care Dimensional Inspector Name Role Phone Delio Heredia MD PCP Allergies No Known Allergies Medications End Date Status Medication Sig Dispensed Refills Start Date Active amLODIPine (NORVASC) 5 mg TAKE ONE (1) tablet TABLET(S) BY 7 MOUTH ONCE A DAY. Active glipizide-metformin TAKE ONE (1) 3 (METAGLIP) 5-500 mg per TABLET(S) BY 7 tablet MOUTH THREE TIMES A DAY. Active LANTUS 100 unit/mL INJECT 90 3 injection (vial) UNITS 7 DIRECTED ONCE DAILY. Active losartan-hydrochlorothiaz TAKE ONE (1) 3 chikis (HYZAAR) 100-25 mg TABLET(S) BY 7 per tablet MOUTH ONCE A DAY. Active metoprolol succinate XL Take 200 mg 3 (TOPROL-XL) 200 mg 24 hr by mouth once 7 tablet daily. Active omeprazole (PriLOSEC) 20 TAKE ONE (1) 4 MG capsule CAPSULE(S) BY 7 MOUTH ONCE A DAY. Active pravastatin (PRAVACHOL) TAKE ONE (1) 3 20 MG tablet TABLET(S) BY 7 MOUTH AT BEDTIME. Active ondansetron (ZOFRAN, Take 1 tablet 20 tablet 0 HYDROCHLORIDE,) 4 MG (4 mg total) 7 tabletIndications: by mouth Complete tear of left every 8 rotator cuff (eight) hours as needed for nausea or vomiting. Active Problems Problem Noted Date Complete tear of left rotator cuff 04/06/2017 Left shoulder pain 03/24/2017 Family History Medical History Relation Name Comments Diabetes Maternal Grandmother Relation Name Status Comments Maternal Grandmother Social History Date Tobacco Use Types Packs/Day Years Used Never Smoker Smokeless Tobacco: Never Used Alcohol Use Drinks/Week oz/Week Comments No Sex Assigned at Date Recorded Not on file Industry Job Start Date Occupation Not on file Not on file Not on file Travel End Travel History Travel Start No recent travel history available. Last Filed Vital Signs Not on file Plan of Treatment Health Maintenance Due Date Last Done Comments COLONOSCOPY SCREENING 1995 SHINGLES VACCINES (#1) 1995 65+ PNEUMOCOCCAL VACCINE 2010 (1 of 2 - PCV13) INFLUENZA VACCINE 05/31/2019 Implants Device Identifier Shelf Expiration Date Model / Serial / Lot Implanted Type Area Manufactur er 11/30/2018 LYSSA 1927B 45 / / [id number] Dexter Sut Corkscrew Ft Biocmpst W/ Orthopedic N/A: N/A ARTHREX Two Sz 2 Fibrwr 4.5x15mm - [employer] [id number] Implants Implanted: 04/22/2017 (Quantity not on file) 11/30/2018 LYSSA 1927B 45 / / [id number] Dexter Sut Corkscrew Ft Biocmpst W/ Orthopedic N/A: N/A ARTHREX Two Sz 2 Fibrwr 4.5x15mm - [employer] [id number] Implants Implanted: 04/22/2017 (Quantity not on file) 11/30/2018 LYSSA 1927B 45 / / [id number] Dexter Sut Corkscrew Ft Biocmpst W/ Orthopedic N/A: N/A ARTHREX Two Sz 2 Fibrwr 4.5x15mm - [employer] [id number] Implants Implanted: 04/22/2017 (Quantity not on file) 12/28/2018 LYSSA 2324BCC / / [id number] Dexter Sut Swivelock Biocmpst C Orthopedic N/A: N/A ARTHREX Vntd 4.75x19.1mm - [id number] [employer] Implanted: 04/22/2017 (Quantity not Implants on file) 12/28/2018 LYSSA 2324BCC / / [id number] Dexter Sut Swivelock Biocmpst C Orthopedic N/A: N/A ARTHREX Vntd 4.75x19.1mm - [id number] [employer] Implanted: 04/22/2017 (Quantity not Implants on file) Results Not on fileafter 04/18/2018 Insurance Type Payer Benefit Subscriber ID Effective Phone Address Plan / Dates Group Medicare MEDICARE MEDICARE xxxxxxxxxx 2010-P [place], PART A AND resent [place] B Commercial AARP AARP xxxxxxxxxxx 2011-P SUPPLEMENT resent Advance Directives Patient has advance care planning documents on file. For more information, jamar basilio contact: Bassem Puente [address] [place] [address]
[2019-04-19 18:38] LABS: BASOPHILS % 0.5 % (0.0-1.0); EOSINOPHILS # (AUTO) 0.2 (0.0-0.4); EOSINOPHILS % 2.8 % (0.0-6.0); HEMOGLOBIN 11.6 g/dL (14.0-18.0); LYMPHOCYTES # (AUTO) 1.1 (1.0-3.2); LYMPHOCYTES % 14.4 % (18.0-39.1); MEAN CORPUSCULAR HEMOGLOBIN 29.1 pg (28-32); MEAN CORPUSCULAR HGB CONC 33.1 g/dL (31-35); MEAN CORPUSCULAR VOLUME 87.9 fL (81-99); MONOCYTES # (AUTO) 0.9 (0.2-0.8); MONOCYTES % 11.1 % (4.4-11.3); NEUTROPHILS # (AUTO) 5.5 (2.1-6.9); NEUTROPHILS % 70.9 % (38.7-80.0); PLATELET COUNT 397 x10e3/uL (140-360); RED BLOOD COUNT 3.98 x10e6/uL (4.3-5.7); RED CELL DISTRIBUTION WIDTH 11.9 % (11.7-14.4)
[2019-04-19 18:49] LABS: BILIRUBIN,URINE NEGATIVE (NEGATIVE); CLARITY,URINE CLEAR (CLEAR); COLOR,URINE YELLOW (YELLOW); KETONES,URINE NEGATIVE (NEGATIVE); LEUKOCYTE ESTERASE ,URINE NEGATIVE (NEGATIVE); NITRITE,URINE NEGATIVE (NEGATIVE); PROTEIN,URINE DIPSTICK TRACE (NEGATIVE); URINE UROBILINOGEN 0.2 mg/dL (0.2 - 1)
[2019-04-19 18:50] LABS: INR 0.92; PROTHROMBIN TIME 12.9 seconds (11.9-14.5)
[2019-04-19 18:51] LABS: PARTIAL THROMBOPLASTIN TIME 37.8 seconds (23.8-35.5)
[2019-04-19 18:58] LABS: BACTERIA,URINE FEW /HPF; EPITHELIAL CELLS,URINE FEW /LPF; WBC,URINE (MAN) 0-5 /HPF (0-5)
[2019-04-19 18:59] LABS: ALBUMIN 3.8 g/dL (3.5-5.0); ALBUMIN/GLOBULIN RATIO 1.1 (0.8-2.0); ANION GAP 17.5 mmol/L (8-16); CALCIUM 9.5 mg/dL (8.4-10.2); CREATININE, SERUM 2.31 mg/dL (0.72-1.25); MAGNESIUM 2.2 MG/DL (1.3-2.1); POTASSIUM 4.5 mmol/L (3.5-5.1)
--- NOTE | 2019-04-19 19:13 | Diagnostic Imaging Report ---
Foot complete CPT code: 35817 Indication: Diabetic foot ulcer ^DFU LATERAL ^[id number] ^1845 Technique: A.P., oblique and lateral views of the left foot obtained. Comparison: None Findings: The area of ulceration is at the bottom of foot. Calcaneus is intact with small plantar spur. The midfoot is intact with moderate degenerative changes. There are significant degenerative changes of the first MTP. No hallux valgus deformity. There is claw toe deformity of the fifth digit. The second digit is amputated at the distal phalanx. There is pes planus. No periosteal new bone formation or focal demineralization. There are diffuse vascular calcifications. No radiopaque foreign bodies in the soft tissues. IMPRESSION: No radiographic evidence of osteomyelitis. Bone scan and MRI are more sensitive modalities to detect osteomyelitis. Degenerative changes as described above. Signed by: Dr. Cj Ewing MD on 04/19/2019 7:10 PM
[2019-04-19] MEDS ORDERED: VANCOMYCIN 1GM/NS 250 ML 250 ML IV ONE (19:45)
[2019-04-19] MEDS ORDERED: LOSARTAN POTASS25 MG PO (19:52)
[2019-04-19] MEDS ORDERED: VANCOMYCIN 1GM/NS 250 ML 250 ML ONE (19:53)
[2019-04-19] MEDS: CEFEPIME 2 GM/NS 0.9% 100 ML 100 ML IV SCH ×2 (19:54→21:30)
[2019-04-19] MEDS ORDERED: DEXTROSE 50% SYRINGE 50 ML IV PRN ×2 (20:00→21:45)
[2019-04-19] MEDS ORDERED: SODIUM CHLORIDE 0.9% 1000ML 1,000 ML IV ONE (20:00)
[2019-04-19] MEDS ORDERED: ONDANSETRON HCL INJ 2MG/ML 2ML 2 MG/ML VIAL IV PRN (20:00)
--- NOTE | 2019-04-19 20:02 | NUR ---
SPOKE WITH DR CHAPMAN REGARDING PCN ALLERGY, OK TO GIVE CEFEPIME
--- OUTSIDE RECORDS SUMMARY | 2019-04-19 20:24 | XMS REPORT | Clinical Summary ---
Author Author [facility] Organization [facility] Address Unknown Phone Unavailable Care Team Providers Care Adjunct Writing Instructor Name Role Phone Delio Heredia MD PCP [...] er 11/30/2018 LYSSA 1927B 45 / / [id number] [place] Sut Corkscrew Ft Biocmpst W/ Orthopedic N/A: N/A ARTHREX Two Sz 2 Fibrwr 4.5x15mm - [employer] [id number] Implants Implanted: 04/22/2017 (Quantity not on file) 11/30/2018 LYSSA 1927B 45 / / [id number] [place] Sut Corkscrew Ft Biocmpst W/ Orthopedic N/A: N/A ARTHREX Two Sz 2 Fibrwr 4.5x15mm - [employer] [id number] Implants Implanted: 04/22/2017 (Quantity not on file) 11/30/2018 LYSSA 1927B 45 / / [id number] [place] Sut Corkscrew Ft Biocmpst W/ Orthopedic N/A: N/A ARTHREX Two Sz 2 Fibrwr 4.5x15mm - [employer] [id number] Implants Implanted: 04/22/2017 (Quantity not on file) 12/28/2018 LYSSA 2324BCC / / [id number] [place] Sut Swivelock Biocmpst C Orthopedic N/A: N/A ARTHREX Vntd 4.75x19.1mm - [id number] [employer] Implanted: 04/22/2017 (Quantity not Implants on file) 12/28/2018 LYSSA 2324BCC / / [id number] [place] Sut Swivelock Biocmpst C Orthopedic N/A: N/A ARTHREX Vntd 4.75x19.1mm - [id number] [employer] Implanted: 04/22/2017 (Quantity not Implants [...] more information, jamar basilio contact: Bassem Puente [address] [place] [address]
[2019-04-19] MEDS: INSULIN LISPRO 100 UNIT/1 ML 3ML VIAL SQ SCH (21:00)
--- NOTE | 2019-04-19 21:36 | NUR ---
PT ON UNIT. PT RESTING COMFORTABLY IN BED AT THIS TIME. PT A&OX4 TO PERSON, PLACE, TIME, AND SITUATION. PT DENIES ANY C/O OF PAIN. PT BED LOCKED IN LOW POSITION WITH CALL LIGHT IN REACH.
[2019-04-19] MEDS ORDERED: ACETAMINOPHEN 325 MG TAB PO PRN (21:45)
[2019-04-19] MEDS: PRAVASTATIN 20 MG TAB PO SCH (22:00)
[2019-04-19] MEDS: PANTOPRAZOLE SOD 40 MG TABEC PO SCH (22:00)
[2019-04-19] MEDS: INSULIN GLARGINE 100 UNITS/ML VIAL SQ SCH (23:37)
[2019-04-20] VITALS (8 sets, daily range): BP systolic 154–172; BP diastolic 71–79
[2019-04-20 03:35] LABS: BASOPHILS % 0.7 % (0.0-1.0); EOSINOPHILS # (AUTO) 0.3 (0.0-0.4); HEMATOCRIT 33.2 % (38.2-49.6); HEMOGLOBIN 11.2 g/dL (14.0-18.0); LYMPHOCYTES # (AUTO) 1.3 (1.0-3.2); LYMPHOCYTES % 21.6 % (18.0-39.1); MEAN CORPUSCULAR HEMOGLOBIN 29.5 pg (28-32); MEAN CORPUSCULAR HGB CONC 33.7 g/dL (31-35); MEAN CORPUSCULAR VOLUME 87.4 fL (81-99); MONOCYTES # (AUTO) 0.9 (0.2-0.8); MONOCYTES % 14.8 % (4.4-11.3); NEUTROPHILS # (AUTO) 3.4 (2.1-6.9); NEUTROPHILS % 57.7 % (38.7-80.0); PLATELET COUNT 348 x10e3/uL (140-360); RED CELL DISTRIBUTION WIDTH 11.8 % (11.7-14.4)
[2019-04-20 03:52] LABS: ALBUMIN 3.5 g/dL (3.5-5.0); ALBUMIN/GLOBULIN RATIO 1.1 (0.8-2.0); ANION GAP 13.1 mmol/L (8-16); CALCIUM 9.2 mg/dL (8.4-10.2); CREATININE, SERUM 1.98 mg/dL (0.72-1.25); MAGNESIUM 2.1 MG/DL (1.3-2.1); POTASSIUM 4.1 mmol/L (3.5-5.1)
[2019-04-20 04:12] LABS: B-TYPE NATRIURETIC PEPTIDE2 39.9 pg/mL (0-100)
--- NOTE | 2019-04-20 07:00 | NUR ---
received am report from rn. pt is resting comfortably in bed, no s/s of distress. call light is within reach, bed in lowest position, side rails up.
[2019-04-20] MEDS ORDERED: INSULIN LISPRO 100 UNIT/1 ML 3ML VIAL SQ SCH (07:30)
[2019-04-20] MEDS ORDERED: ONDANSETRON HCL 4 MG ORAL DISINTEGRATING TAB PO PRN (09:00)
[2019-04-20] MEDS: INSULIN LISPRO 100 UNIT/1 ML 3ML VIAL SQ SCH ×4 (09:00→20:56)
[2019-04-20] MEDS: CEFEPIME 2 GM/NS 0.9% 100 ML 100 ML IV SCH ×2 (09:08→20:56)
[2019-04-20] MEDS: PANTOPRAZOLE SOD 40 MG TABEC PO SCH (09:08)
[2019-04-20] MEDS: LOSARTAN POTASSIUM 25 MG TAB PO SCH (09:09)
[2019-04-20] MEDS: METOPROLOL SUCCINATE 50 MG TAB XL PO SCH (09:10)
--- NOTE | 2019-04-20 12:28 | Consultation ---
DATE OF CONSULTATION: 04/20/2019 HISTORY OF PRESENTING ILLNESS: This is a 74-year-old male with past medical history of type 2 diabetes, peripheral neuropathy, hypertension, hyperlipidemia, who was admitted through the emergency room yesterday for worsening infection to his left foot. The patient is well known to me. He was seen in the office approximately 3 days ago and then again yesterday. He relates to having an open wound with worsening redness and pain to the left foot. The wound was debrided and cultured. Antibiotics with clindamycin and Cipro were started as well as daily dressing changes with Betadine wet-to-dry. The patient had a followup in the office with me yesterday and the wound was worsening, so the decision was made to be admitted to the hospital for IV antibiotics and further workup. The patient relates to no pain at this time. Currently, denies nausea, vomiting, fever, chills, chest pain, or shortness of breath. PAST MEDICAL HISTORY: 1. Type 2 diabetes, peripheral neuropathy, hypertension. 2. Hyperlipidemia. MEDICATIONS: See list. ALLERGIES: PENICILLIN. PAST SURGICAL HISTORY: Rotator cuff surgery, left knee surgery, left partial amputation of 2nd digit. REVIEW OF SYSTEMS: The patient currently denies nausea, vomiting, fever, chills, chest pain, or shortness of breath. SOCIAL HISTORY: The patient currently denies smoking. Has a history of smoking. Denies alcohol or illicit drug usage. PHYSICAL EXAMINATION: GENERAL: Alert and oriented x3, in no apparent distress. VITAL SIGNS: Today, temperature 97.1, heart rate 69, respiratory rate 16, blood pressure 167/79, pulse ox 96% on room air: PROBLEM FOCUSED LOWER EXTREMITY PHYSICAL EXAM: VASCULAR: Dorsalis pedis and posterior tibial pulses are faintly palpable. Capillary refill time is approximately 4 to 5 seconds to all digits. A large ulceration is noted to the medial plantar aspect of the patient's left foot with greater than 2 cm of periwound erythema, edema, and warmth, which does appear improved since the previous visit approximately 24 hours ago. NEUROLOGIC: Sensation is absent to light touch bilateral. MUSCULOSKELETAL: Partial amputation of the left digit, decreased arch height with a large plantar medial prominence at the talonavicular joint. Due to either previous flatfoot deformity or Charcot neuroarthropathy. DERMATOLOGIC: Approximately 2 cm x 2 cm fibro granular ulceration is noted to the medial plantar aspect of the patient's left arch with greater than 2 cm of periwound erythema, edema, and warmth. No active drainage is noted this time. LABORATORY DATA: White blood cell count is 5.8, hemoglobin 11.2, hematocrit 33.2, platelet count 348. Sodium 133, potassium 4.1, chloride 99, CO2 of 22, BUN 23, creatinine 1.98, glucose 320. Hemoglobin A1c 9.2. X-rays, no radiographic evidence of osteomyelitis. ASSESSMENT: 1. Left foot ulcer with cellulitis. 2. Type 2 diabetes, peripheral neuropathy, uncontrolled. Hemoglobin A1c of 9.2. PLAN: The patient was seen and evaluated. Discussed condition, x-rays, and treatment options with the patient in detail. At this time, we will order MRI to rule out abscess formation. A Betadine wet-to-dry dressing change was performed with 4x4s, Kerlix, and an Fausto wrap. The patient should be limited heel touch weightbearing only. Plan will be for 2-3 days of IV antibiotics to resolve cellulitis. If no abscess formation, then surgical debridement is necessary. The Podiatry Service will continue to monitor as an inpatient. FATIMAH Richter/PATY /[id number]
--- NOTE | 2019-04-20 16:48 | Diagnostic Imaging Report ---
TECHNIQUE: Magnetic resonance imaging of the LEFT foot was performed WITHOUT injected contrast. HISTORY: Pain, evaluate for ostium myelitis COMPARISON: None available. DISCUSSION: Soft tissue ulceration to the plantar midfoot. No sinus tract extending to bone. No well-defined abscess. No osteomyelitis. No acute fracture. Multifocal arthropathy of the foot is prominent involving the first MTP joint and across the tarsometatarsal articulations. Underlying flatfoot deformity. Atrophy of the foot musculature. IMPRESSION: Plantar foot ulceration of the midfoot. No osteomyelitis. Signed by: Dr. Unruly Fisher M.D. on 04/20/2019 4:45 PM
[2019-04-20] MEDS: INSULIN GLARGINE 100 UNITS/ML VIAL SQ SCH (20:56)
[2019-04-20] MEDS: PRAVASTATIN 20 MG TAB PO SCH (20:56)
[2019-04-21] VITALS (9 sets, daily range): BP systolic 142–187; BP diastolic 67–84
[2019-04-21] MEDS: HYDRALAZINE HCL 20 MG/ML VIAL IV PRN ×2 (01:01→21:40)
[2019-04-21 04:04] LABS: BASOPHILS # (AUTO) 0.1 (0.0-0.1); BASOPHILS % 0.8 % (0.0-1.0); EOSINOPHILS # (AUTO) 0.4 (0.0-0.4); EOSINOPHILS % 5.1 % (0.0-6.0); HEMATOCRIT 36.3 % (38.2-49.6); HEMOGLOBIN 11.9 g/dL (14.0-18.0); LYMPHOCYTES # (AUTO) 1.4 (1.0-3.2); LYMPHOCYTES % 17.6 % (18.0-39.1); MEAN CORPUSCULAR HEMOGLOBIN 28.8 pg (28-32); MEAN CORPUSCULAR HGB CONC 32.8 g/dL (31-35); MEAN CORPUSCULAR VOLUME 87.9 fL (81-99); MONOCYTES # (AUTO) 0.9 (0.2-0.8); MONOCYTES % 11.5 % (4.4-11.3); NEUTROPHILS % 64.6 % (38.7-80.0); PLATELET COUNT 389 x10e3/uL (140-360); RED BLOOD COUNT 4.13 x10e6/uL (4.3-5.7); RED CELL DISTRIBUTION WIDTH 11.9 % (11.7-14.4)
[2019-04-21 04:17] LABS: ANION GAP 15.4 mmol/L (8-16); CALCIUM 9.6 mg/dL (8.4-10.2); CREATININE, SERUM 1.82 mg/dL (0.72-1.25); POTASSIUM 4.4 mmol/L (3.5-5.1)
[2019-04-21] MEDS: INSULIN LISPRO 100 UNIT/1 ML 3ML VIAL SQ SCH ×4 (07:30→21:54)
[2019-04-21] MEDS: PANTOPRAZOLE SOD 40 MG TABEC PO SCH (07:30)
--- NOTE | 2019-04-21 07:45 | NUR ---
Patient alert and oriented, o c/o pains, rounds by Dr. Wilkins and changed dressing to left foot. No c/o pains, will monitor
[2019-04-21] MEDS: CEFEPIME 2 GM/NS 0.9% 100 ML 100 ML IV SCH ×2 (08:00→20:40)
--- NOTE | 2019-04-21 08:31 | Progress Note ---
DATE: 04/21/2019 SUBJECTIVE: This is a 74-year-old male with past medical history of type 2 diabetes, hypertension, and hyperlipidemia, who was seen at bedside this morning. He was admitted for worsening infection to his left foot after failed oral antibiotic therapy. The patient relates no new complaints at this time. Denies pain, nausea, vomiting, fever, chills, chest pain, or shortness of breath. PHYSICAL EXAMINATION: GENERAL: Alert and oriented x3, in no apparent distress. VITAL SIGNS: 97.9, heart rate 72, respiratory rate 18, blood pressure 172/74, and pulse ox is 97% on room air. PROBLEM FOCUSED LOWER EXTREMITY PHYSICAL EXAMINATION: VASCULAR: Dorsalis pedis and posterior tibial pulses are faintly palpable. Capillary refill time 4-5 seconds to all digits. Improvement in erythema, edema, and warmth to the patient's left foot to the periwound with mid foot. NEUROLOGICAL: Sensation is absent to light touch bilateral. MUSCULOSKELETAL: Partial amputation of the left digit, decreased arch height with large plantar medial prominence due to previous flatfoot deformity. DERMATOLOGICAL: Approximately 2 cm x 2 cm fiber granular ulceration is noted to the medial plantar aspect of the patient's left foot with significant reduction in erythema, edema, and warmth. LABORATORY DATA: White blood cell count 7.7, hemoglobin 11.9, hematocrit 36.3, and platelet count 389. Sodium 136, potassium 4.4, chloride 102, CO2 of 23, BUN 23, creatinine 1.82, and glucose 264. Hemoglobin A1c is 9.2. IMAGING: MRI of the right foot reveal, no evidence of osteomyelitis. No evidence of abscess formation, plantar ulceration of the midfoot. ASSESSMENT: 1. Left foot ulcer with cellulitis. 2. Type 2 diabetes, peripheral neuropathy, uncontrolled with a hemoglobin A1c of 9.2. PLAN: The patient was seen and evaluated. Discussed condition, x-rays, MRI and treatment options with the patient in detail. At this time, MRI was negative for osteomyelitis or abscess formation. Local acute signs of infection have significantly improved with 24 hours of IV antibiotics. A Betadine wet-to-dry dressing change was performed with 4x4s, Kerlix, and Fausto wraps. The patient should be limited heel touch weightbearing only. The plan continues to be 2 to 3 days of IV antibiotics until cellulitis resolves. The Podiatry Service will continue to monitor and patient will discuss with the primary care team. FATIMAH Rihcter/PATY /[id number]
[2019-04-21] MEDS: INSULIN GLARGINE 100 UNITS/ML VIAL SQ SCH ×2 (08:46→21:54)
[2019-04-21] MEDS: METOPROLOL SUCCINATE 50 MG TAB XL PO SCH (09:14)
[2019-04-21] MEDS: LOSARTAN POTASSIUM 25 MG TAB PO SCH (09:14)
[2019-04-21] MEDS: AMLODIPINE BESYLATE 10 MG TAB PO SCH (16:45)
--- NOTE | 2019-04-21 19:27 | NUR ---
Patient stable, tolerating abx, appetite fair, BP elevated, medicated with hydralazine PRN with good result, HEEL BURNISHER added amlodipine to med list, VSS and no c/o pain and will monitor.
[2019-04-21] MEDS: PRAVASTATIN 20 MG TAB PO SCH (20:40)
--- NOTE | 2019-04-21 21:30 | NUR ---
PATIENT IS RELAXING IN RECLINER, NO SIGNS OF DISTRESS NOTED, NO COMPLAINTS OF PAIN. PATIENT'S BLOOD PRESSURE WAS ELEVATED, GAVE PRN HYDRALAZINE, CONTINUING TO MONITOR.
[2019-04-22] VITALS: BP 135/64
--- NOTE | 2019-04-22 03:09 | NUR ---
PATIENT RELAXING IN BED WATCHING TELEVISION, NO SIGNS OF DISTRESS NOTED. BOTH SIDE RAILS ARE UP, BED LOCKED AND LOW, CALL LIGHT WITHIN REACH, WILL CONTINUE TO MONITOR.
[2019-04-22 04:00] VITALS: BP 139/68
[2019-04-22 05:43] LABS: BASOPHILS % 0.6 % (0.0-1.0); EOSINOPHILS # (AUTO) 0.3 (0.0-0.4); EOSINOPHILS % 4.4 % (0.0-6.0); HEMATOCRIT 35.9 % (38.2-49.6); HEMOGLOBIN 11.8 g/dL (14.0-18.0); LYMPHOCYTES # (AUTO) 1.1 (1.0-3.2); LYMPHOCYTES % 16.3 % (18.0-39.1); MEAN CORPUSCULAR HEMOGLOBIN 28.7 pg (28-32); MEAN CORPUSCULAR HGB CONC 32.9 g/dL (31-35); MEAN CORPUSCULAR VOLUME 87.3 fL (81-99); MONOCYTES # (AUTO) 0.7 (0.2-0.8); MONOCYTES % 9.9 % (4.4-11.3); NEUTROPHILS # (AUTO) 4.8 (2.1-6.9); NEUTROPHILS % 68.4 % (38.7-80.0); PLATELET COUNT 372 x10e3/uL (140-360); RED BLOOD COUNT 4.11 x10e6/uL (4.3-5.7); RED CELL DISTRIBUTION WIDTH 11.9 % (11.7-14.4)
[2019-04-22 06:00] LABS: ANION GAP 12.8 mmol/L (8-16); CALCIUM 9.5 mg/dL (8.4-10.2); CREATININE, SERUM 1.71 mg/dL (0.72-1.25); POTASSIUM 3.8 mmol/L (3.5-5.1)
[2019-04-22] MEDS ORDERED: BACTRIM DS TAB1 EACH PO (07:14)
[2019-04-22] MEDS ORDERED: CIPRO500 MG PO (07:14)
[2019-04-22] MEDS ORDERED: NORVASC10 MG PO (07:15)
[2019-04-22] MEDS: INSULIN LISPRO 100 UNIT/1 ML 3ML VIAL SQ SCH (07:30)
[2019-04-22 07:50] VITALS: BP 139/68
[2019-04-22 07:53] VITALS: BP 149/72
[2019-04-22] MEDS ORDERED: GLIPIZIDE 5 MG TAB ER PO SCH (08:00)
[2019-04-22] MEDS: METOPROLOL SUCCINATE 50 MG TAB XL PO SCH (08:41)
[2019-04-22] MEDS: LOSARTAN POTASSIUM 25 MG TAB PO SCH (08:41)
[2019-04-22] MEDS: AMLODIPINE BESYLATE 10 MG TAB PO SCH (08:41)
[2019-04-22] MEDS: INSULIN GLARGINE 100 UNITS/ML VIAL SQ SCH (08:43)
[2019-04-22] MEDS: PANTOPRAZOLE SOD 40 MG TABEC PO SCH (09:19)
[2019-04-22] MEDS: CEFEPIME 2 GM/NS 0.9% 100 ML 100 ML IV SCH (09:19)
--- NOTE | 2019-04-22 11:05 | NUR ---
Dr Plasencia had rounds, stated patient can go home from his standpoint. Patient discharged home, not in any distress, IV canula removed with tip intact, no ss of infiltration, prescription given, at bed side
[2019-04-22 11:20] VITALS: BP 145/67
--- NOTE | 2019-04-22 12:31 | Progress Note ---
DATE: 04/22/2019 SUBJECTIVE: A 74-year-old male with past medical history of type 2 diabetes, hypertension, hyperlipidemia, who was seen at bedside this morning. He relates to no new pedal complaints at this time. Denies nausea, vomiting, fever, chills, chest pain, or shortness of breath. PHYSICAL EXAMINATION: GENERAL: Alert and oriented x3, in no apparent distress. VITAL SIGNS: Today, temperature is 97.2, heart rate 68, respiratory rate 18, blood pressure 149/72, pulse ox 96% on room air: PROBLEM FOCUSED LOWER EXTREMITY PHYSICAL EXAMINATION: VASCULAR: Dorsalis pedis and posterior tibial pulses are faintly palpable. Capillary refill time is approximately 4-5 seconds to all digits. Significant reduction in erythema, edema, and warmth to the patient's left foot. NEUROLOGICAL: Sensation is absent to light touch bilateral. MUSCULOSKELETAL: Partial amputation of the left digit, decreased arch height with large plantar medial prominence due to previous flatfoot deformity. DERMATOLOGICAL: A 2 cm x 2 cm granular ulceration is noted to the medial plantar aspect of the patient's left foot with significant reduction in erythema, edema, and warmth. LABORATORY DATA: White blood cell count of 7.0, hemoglobin 11.8, hematocrit 35.9, platelet count 372. Sodium 139, potassium 3.8, chloride 105, CO2 of 25, BUN 23, creatinine 1.71, glucose 115. ASSESSMENT: 1. Left foot ulceration with cellulitis. 2. Type 2 diabetes, peripheral neuropathy, uncontrolled with hemoglobin A1c of 9.2. PLAN: The patient was seen and evaluated. Discussed condition, x-rays, and MRI with the patient in detail. Dry sterile dressing change was performed today with Betadine wet-to-dry. Local acute signs of infection have significantly improved with 3 days of IV antibiotics. The patient should be limited heel touch weightbearing and to keep activities limited. The patient is stable to be discharged from the Podiatry Service at this time. We will recommend follow up in 3-4 days as an outpatient where we will continue local wound care. The Podiatry Service will continue to monitor as inpatient. FATIMAH Richter/MODAna /[id number]
--- NOTE | 2019-04-24 00:34 | Discharge Summary ---
ADMISSION DIAGNOSES: Diabetic foot ulcer on the left foot, type 2 diabetes complicated by chronic kidney disease 3, hypertension complicated by chronic kidney disease 3, hyperlipidemia, gastroesophageal reflux disease, chronic kidney disease 3. DISCHARGE DIAGNOSES: Diabetic foot ulcer on the left foot, type 2 diabetes complicated by chronic kidney disease 3, hypertension complicated by chronic kidney disease 3, hyperlipidemia, gastroesophageal reflux disease, chronic kidney disease 3. Rule out osteomyelitis. HISTORY: Type 2 diabetes, hyperlipidemia, hypertension, and GERD. SURGICAL HISTORY: Appendectomy, right total hip replacement, left total knee replacement, left shoulder rotator cuff surgery, and a partial left 2nd toe amputation. FAMILY HISTORY: Noncontributory. SOCIAL HISTORY: Noncontributory. HOSPITAL COURSE: A 74-year-old male sent from Dr. Wilkins's office due to poor wound healing of the left foot. About 12 days ago, he noticed blood on his sock, but is unaware of when and how the wound started. He was using Cipro and clindamycin outpatient with little improvement. On admission, the patient was started on IV cefepime. X-ray of the foot showed no evidence of osteomyelitis and MRI was ordered to confirm no osteomyelitis. Blood cultures were negative and wound culture was negative. The patient was discharged home with Cipro and Bactrim for five more days and Norvasc 10 for blood pressure. He will continue other home medicines. He will follow up with primary care in 1 to [address] Wilkins as discussed. The patient understands discharge instructions and agrees to plan. Dictated by Lima oMralez NP MD LOS Schwartz/PATY /[id number]
== END 2019-04-22 11:30 | disposition home or self-care (01) | DRG 638 ==
LOC: ER 17:26 → ERHOLD 20:21 → MED/SURG3 21:16
PROVIDERS: ADMIT Internal Medicine; ATTEND Internal Medicine
DX: E11.621 Type 2 diabetes mellitus with foot ulcer (principal); L97.421 Non-pressure chronic ulcer of left heel and midfoot limited to breakdown of skin; L03.116 Cellulitis of left lower limb; E11.22 Type 2 diabetes mellitus with diabetic chronic kidney disease; I12.9 Hypertensive chronic kidney disease with stage 1 through stage 4 chronic kidney disease, or unspecified chronic kidney disease; N18.3 Chronic kidney disease, stage 3 (moderate); E78.5 Hyperlipidemia, unspecified; K21.9 Gastro-esophageal reflux disease without esophagitis; E11.65 Type 2 diabetes mellitus with hyperglycemia; E11.42 Type 2 diabetes mellitus with diabetic polyneuropathy; Z79.4 Long term (current) use of insulin; Z87.891 Personal history of nicotine dependence; Z89.422 Acquired absence of other left toe(s); Z88.0 Allergy status to penicillin
CPT/HCPCS: 36415; 80048; 80053; 81001; 82948; 83036; 83735; 83880; 85025; 85610; 85730; 87040; 87071; 87205; 93926; 99284; J0360; J1815; J3370; J7030

== ENCOUNTER 2019-07-04 14:04 | Outpatient (RCR) | payer MEDICARE ==
[~2019-07-04 14:04] MED LIST changes: +BACTRIM DS TAB1 EACH PO; +CIPRO500 MG PO; +LOSARTAN POTASS25 MG PO; +NORVASC10 MG PO
== END 2019-07-30 | disposition home or self-care, planned readmission (81) ==
LOC: WCC 14:04
PROVIDERS: ATTEND Family Medicine
DX: E11.621 Type 2 diabetes mellitus with foot ulcer (principal); E11.22 Type 2 diabetes mellitus with diabetic chronic kidney disease; E11.42 Type 2 diabetes mellitus with diabetic polyneuropathy; E11.65 Type 2 diabetes mellitus with hyperglycemia; L97.428 Non-pressure chronic ulcer of left heel and midfoot with other specified severity; I12.9 Hypertensive chronic kidney disease with stage 1 through stage 4 chronic kidney disease, or unspecified chronic kidney disease; K21.9 Gastro-esophageal reflux disease without esophagitis; L03.116 Cellulitis of left lower limb; L97.421 Non-pressure chronic ulcer of left heel and midfoot limited to breakdown of skin; N18.3 Chronic kidney disease, stage 3 (moderate); Z79.4 Long term (current) use of insulin; Z87.891 Personal history of nicotine dependence; Z89.422 Acquired absence of other left toe(s)

== ENCOUNTER → 2019-09-13 | Outpatient (CLI) | payer MEDICARE ==
--- NOTE | 2019-09-13 10:15 | Diagnostic Imaging Report ---
TECHNIQUE: Magnetic resonance imaging of the LEFT foot was performed WITHOUT injected contrast. HISTORY: Foot pain COMPARISON: None available. DISCUSSION: Soft tissue ulceration of the midfoot with phlegmon. No sinus tract extending to the osseous surface. No osteomyelitis. Multifocal degenerative arthrosis most prominent at the tarsometatarsal articulations with areas of subchondral edema and cystic change. Atrophy of the foot musculature. IMPRESSION: Soft tissue ulceration of the plantar midfoot. No osteomyelitis. Signed by: Dr. Unruly Fisher M.D. on 09/13/2019 10:11 AM
== END ==
LOC: MRI 08:41
PROVIDERS: ATTEND Podiatrist Foot & Ankle Surgery
DX: M86.072 Acute hematogenous osteomyelitis, left ankle and foot (principal)

== ENCOUNTER → 2020-03-07 | Day surgery (SDC) | payer MEDICARE ==
--- NOTE | 2020-03-04 13:59 | Diagnostic Imaging Report ---
EXAMINATION: CHEST 2 VIEWS INDICATION: ^[id number] ^[id number] ^PRE OP COMPARISON: None FINDINGS: PA and lateral views TUBES and LINES: None. LUNGS: Lungs are well inflated. Subtle 1.4 cm opacity of the left lung base may represent a focal scar. The lungs are otherwise clear. There is no evidence of pneumonia or pulmonary edema. PLEURA: No pleural effusion or pneumothorax. HEART AND MEDIASTINUM: The cardiomediastinal silhouette is unremarkable. BONES AND SOFT TISSUES: No acute osseous lesion. Soft tissues are unremarkable. UPPER ABDOMEN: No free air under the diaphragm. IMPRESSION: No acute thoracic radiographic abnormality. Signed by: Dante Phan MD on 03/04/2020 1:55 PM
[2020-03-04 14:02] LABS: BASOPHILS # (AUTO) 0.1 (0.0-0.1); BASOPHILS % 0.7 % (0.0-1.0); EOSINOPHILS # (AUTO) 0.2 (0.0-0.4); EOSINOPHILS % 2.6 % (0.0-6.0); HEMATOCRIT 38.1 % (38.2-49.6); HEMOGLOBIN 12.6 g/dL (14.0-18.0); LYMPHOCYTES # (AUTO) 1.4 (1.0-3.2); LYMPHOCYTES % 19.9 % (18.0-39.1); MEAN CORPUSCULAR HEMOGLOBIN 28.7 pg (28-32); MEAN CORPUSCULAR HGB CONC 33.1 g/dL (31-35); MEAN CORPUSCULAR VOLUME 86.8 fL (81-99); MONOCYTES # (AUTO) 0.8 (0.2-0.8); MONOCYTES % 10.9 % (4.4-11.3); NEUTROPHILS # (AUTO) 4.6 (2.1-6.9); NEUTROPHILS % 65.6 % (38.7-80.0); PLATELET COUNT 303 x10e3/uL (140-360); RED BLOOD COUNT 4.39 x10e6/uL (4.3-5.7); RED CELL DISTRIBUTION WIDTH 12.6 % (11.7-14.4)
[2020-03-04 14:18] LABS: ANION GAP 14.7 mmol/L (8-16); CALCIUM 9.6 mg/dL (8.4-10.2); CREATININE, SERUM 1.93 mg/dL (0.72-1.25); POTASSIUM 4.7 mmol/L (3.5-5.1)
[~2020-03-07] MED LIST changes: +BACITRACIN 50,000 UNIT VIAL ONE; +BACITRACIN ZINC 15 GM OINT ONE; +BUPIVACAINE HCL 0.5% INJ 30 ML VIAL INJ ONE; +DEXAMETHASONE SOD PHOS INJ 4 MG/ML VIAL ONE; +LIDOCAINE HCL 2% LOCAL INJ 5 ML SDV VIAL INJ ONE; +ONDANSETRON HCL INJ 2MG/ML 2ML 2 MG/ML VIAL ONE; +PROPOFOL IV EMULSION 10 MG/ML 20 ML VIAL ONE; +SEVOFLURANE INHAL SOLN 250 ML PEN BTL ONE; +VANCOMYCIN 1GM/NS 250 ML 250 ML ONE
--- OUTSIDE RECORDS SUMMARY | 2020-03-07 05:40 | XMS REPORT | Summary of Care ---
Author Author [facility] - Health Organization [facility] - Health Address Unknown Phone Unavailable Care Team Providers Care Instructor Creeler Name Role Phone Christiano Ceja PCP Reason for Referral * Other (Routine) Referred By Contact Referred To Contact Status Reason Specialty Diagnoses / Procedures Vero Germain FNP [address] [place] [phone] Nita Rayo MD [address] [place] [address] New Request Diagnoses Claudication P rocedures Discharge Follow-up: Specialty Provider NITA RAYO; 2 Weeks Reason for Visit * (Routine) Referred By Contact Referred To Contact Status Reason Specialty Diagnoses / Procedures Nita Rayo MD [address] [place] [address] Clc-Cardiac Manager Safe [address] [place] [phone] Closed Cardiac Manager [facility] Diagnoses Peripheral vascular disease, unspecified P rocedures CONSULT/REFERRAL CARDIAC CATH -CECILIA ANGIO W/ INTERVENTION [id number] Encounter Details Care Team Description Date Type Department Nita Rayo MD [address] [place] [address] [phone], Clc Cardiac Proc Room Claudication (Primary Dx) 06/19/2019 Hospital [facility] Heart C enter Encounter - Manager [facility], [facility] [address] [place] [phone] Allergies Comments Active Allergy Reactions Severity Noted Date Penicillins Swelling 06/11/2019 documented as of this encounter (statuses as of 06/20/2019) Medications End Date Status Medication Sig Dispensed Refills Start Date Active ciprofloxacin HCl 500 mg 500 mg every 0 04/22 tablet 12 (twelve) 9 hours. Active amLODIPine 10 mg tablet 10 mg daily. 0 9 Active glipizide-metformin 5-500 1 tablet 3 3 03/01 9/201 mg per tablet (three) times 9 daily. Active losartan 50 mg tablet 50 mg daily. 3 03/28/20 1 9 Active metoprolol succinate XL Take 200 mg 0 200 mg 24 hr tablet by mouth daily. Active insulin inject under 0 glargine,hum.rec.anlog the skin as (LANTUS SC) needed. Up to 90 units Active pravastatin 20 mg tablet Take 20 mg by 0 mouth daily. Active Omeprazole 20 mg tablet Take 20 mg by 0 mouth every other day. Active aspirin 81 mg chewable Take 1 tablet 30 tablet 3 0 tabletIndications: PVD by mouth 9 (peripheral vascular daily. disease) Active clopidogrel 75 mg Take 1 tablet 30 tablet 3 tabletIndications: PVD by mouth 9 (peripheral vascular daily. disease) documented as of this encounter (statuses as of 06/20/2019) Active Problems Not on filedocumented as of this encounter (statuses as of 06/20/2019) Social History Date Tobacco Use Types Packs/Day Years Used Never Assessed Sex Assigned at Date Recorded Not on file Industry Job Start Date Occupation Not on file Not on file Not on file Travel End Travel History Travel Start No recent travel history available. documented as of this encounter Last Filed Vital Signs Reading Time Taken Comments Vital Sign 158/79 06/19/2019 3:05 PM CDT bp while standin g Blood Pressure 75 06/19/2019 3:05 PM CDT Pulse 36.4 C (97.5 F) 06/19/2019 3:05 PM CDT Temperature 8 06/19/2019 3:05 PM CDT Respiratory Rate 96% 06/19/2019 3:00 PM CDT Oxygen Saturation - - Inhaled Oxygen Concentration 90.7 kg (199 lb 15.3 oz) 06/19/2019 8:47 AM CDT Weight 183 cm (6' 0.05") 06/19/2019 8:47 AM CDT Height 27.08 06/19/2019 8:47 AM CDT Body Mass Index documented in this encounter Discharge Instructions * Instructions* Erica Cha RN - 06/19/2019 Patient Discharge Instructions Discharge date: 06/19/2019 Procedure(s): Discharge Orders Activity As Tolerated Lift nothing heavier than 5 pounds for 2 weeks Do not operate a motorized vehicle for 2 days Keep area dry and clean Do not remove band-aid for the first 24 hours after procedure Do not soak in bathtub or hot tub for the first 24 hours after procedure Watch for bleeding, swelling, pain, fever, and any discharge call the Manager [facility] ( during hours) Order Comments: At nights, weekends or holidays, call the [facility] conveyor system operator at . Ask the conveyor system operator to page the Cardiac Cath Fellow who is on-ca ll. Avoid making important life decisions for the first 48 hours No strenuous activity for 72 hours Drink plenty of water Continue previous outpatient medications Hold Metformin for 48 hours Discharge Follow-up: Specialty Provider NITA RAYO; 2 Weeks To Provider: NITA RAYO [[id number]] Patient's Preferred Location: [place] Discharge Disposition: HOME, ([facility]) When (Patients with risk for unplanned readmission score over 16 or those noted as Hospital Dependent should follow up within 7 days with PCP or primary DX spec ialist): 2 Weeks Cardiac (2 gm Sodium, Low Fat, Low Cholesterol) Diet; Texture: Regular. Texture Regular. Diabetic: NIDDM Discharge Condition - Discharge Condition: GOOD Discharge Activity Discharge Activity: As Tolerated Discharge Activity: No Heavy Lifting or Strenuous Activity Resume pre procedure diet Order Comments: Resume pre procedure diet No VTE Prophylaxis given- Patient low risk for VTE; Not ordered during hospitali zation Follow instructions as indicated below: 1. The medication that was used will be acting in your system for the next 24 ho urs, so you might feel a little drowsy, with impaired judgment and or motor func tion. This feeling should go wear off. Because the medication is still in your system for the next 24 hours you SHOULD NOT: Drive a car, operate machinery or power tool. Drink any alcohol beverages (including beer or wine). Make any important decisions or sign any legal documents. 2. You should rest the remainder of the day and not engage in any physical activ ity. Move slowly today. After lying down, sit on the edge of the bed for a mom ent before standing. YOU ARE RESPONSIBLE FOR HAVING SOMEONE AT HOME WITH YOU DU RING THE AFTERNOON AND NIGHT IMMEDIATELY FOLLOWING YOUR SURGERY. Patient should cough and deep breathe every 2-4 hours while awake to avoid respiratory complic ations. 4. Lifting: {IP DISCHARGE INSTRUCTIONS LIFTIN::"No medical restrictions"} 5. Weight: In general, sudden weight gains or losses should be reported to your provider. Cardiac patients should weigh daily and notify their provider for a w eight gain of 3 pounds per day or 5 pounds per week. 6. Tobacco Avoidance: Follow recommendations below 7. Because the medications used could procedure some residual nausea and vomitin g after you go home, you should eat lightly today, starting with clear liquids ( broth, soft drinks, apple juice, jello) and toast or crackers, progressing to bl and solid foods and then to your normal diet as tolerated, unless otherwise stat ed by your surgeon. If you get sick, wait a couple of hours and then begin to e at. After 24 hours the nausea should be gone. 8. You may experience some pain and your physician will advise you on what to ta ke for discomfort. This should be taken as directed. If the pain is not reliev ed, contact your physician. You may also have a sore throat from the airway guille t was in place. You may uses lozenges, throat spray (such as Chloraseptic), or warm salt water gargles for symptomatic relief. 9. If you feel warm, take your temperature. If it is 101 degrees or above call your physician. 10. If you are unable to urinate within five hours after your procedure, call y our physician. 11. The type of surgery performed will determine how much bleeding (if any) to e xpect. Normally, some spotting might occur. If your dressing pad becomes satur ated, notify your physician. Elevate surgical site, if applicable, to reduced s welling and pain. 12. Wound/dressing care: Tips on preventing a surgical site infection.. Dont smoke. It is best to quit at least 30 days before surgery, but quitting after surgery is also helpful. If you are diabetic, keep your blood sugar well controlled. WASH YOUR HANDS. Keep your wound clean and remember to wash your hands before a nd after contact with the area. All health care workers should also wash their hands or use an alcohol based barth d rub prior to examining you. If antibiotics are prescribed, take them as directed. Finish the entire course of antibiotics. Call your doctor if you have signs of infection: ? Increased tenderness at the surgical site ? Red streaks or increased redness of the area ? Bad-smelling discharge from the incision ? Fever of 101F or higher ? General tired feeling that doesnt improve 13. Other discharge instructions: {DC IP DISCHARGE INSTRUCTIONS OTHER:07234} 14. Special Instructions: Take Home Medications These are medications ordered for you by your healthcare provider. Do not take any other medications or supplements unless advised by your healthcare provider. Patient's Medications START taking these medications No medications on file CONTINUE taking these medications which have NOT CHANGED AMLODIPINE 10 MG TABLET 10 mg daily. ASPIRIN 81 MG CHEWABLE TABLET Take 1 tablet by mouth daily. CIPROFLOXACIN HCL 500 MG TABLET 500 mg every 12 (twelve) hours. CLOPIDOGREL 75 MG TABLET Take 1 tablet by mouth daily. GLIPIZIDE-METFORMIN 5-500 MG PER TABLET 1 tablet 3 (three) times daily. INSULIN GLARGINE,HUM.REC.ANLOG (LANTUS SC) inject under the skin as needed. Up to 90 units LOSARTAN 50 MG TABLET 50 mg daily. METOPROLOL SUCCINATE XL 200 MG 24 HR TABLET Take 200 mg by mouth daily. OMEPRAZOLE 20 MG TABLET Take 20 mg by mouth every other day. PRAVASTATIN 20 MG TABLET Take 20 mg by mouth daily. START taking Modified Medications as Prescribed No medications on file STOP taking these medications No medications on file Follow-up appointments: Your follow up appointment with your surgeon has been made. Appointment Date: , Appointment Time . For questions regarding follow-up instructions call the [facility] Hotline at [phone] or If you experience any of the following symptoms , please follow up with . For worsening symptoms/changing condition/problems or questions: Non-emergency/urgent: Call the Healthcare Hotline at or [phone] or Emergency: Go to the closest emergency room or call 911 Translated by Date Time If you receive the patient satisfaction survey by mail please complete and retur n and let us know how we are doing. TOBACCO AVOIDANCE Exposure to tobacco either from smoking or from second hand (environmental) smok e or smokeless tobacco (snuff) is damaging to your health. This information is to encourage everyone to avoid tobacco exposure. It is recommended that you: ? If you smoke or use smokeless tobacco, we encourage you to quit. ? If you have already quit smoking, continue your good work! ? If you do not smoke or use smokeless tobacco, do not start. ? Avoid secondhand smoke. Additional Resources You may want to contact these organizations for further information on smoking a nd how to quit. [place] Lung Association, http://www.lungusa.org/stop-smoking/ [place] Cancer Society, http://www.cancer.org/Healthy/StayAwayfromTobacco/index [place] Heart Association, http://www.heart.org/HEARTORG/GettingHealthy/QuitSmo agnieszka/Quit-Smoking_[facility]_001085_SubHomePage.jspPatient Discharge Instructions Follow instructions as indicated below: Discharge Orders Activity As Tolerated Lift nothing heavier than 5 pounds for 2 weeks Do not operate a motorized vehicle for 2 days Keep area dry and clean Do not remove band-aid for the first 24 hours after procedure Do not soak in bathtub or hot tub for the first 24 hours after procedure Watch for bleeding, swelling, pain, fever, and any discharge call the Manager [facility] ( during hours) Order Comments: At nights, weekends or holidays, call the [facility] hospital conveyor system operator at . Ask the conveyor system operator to page the Cardiac Cath Fellow who is on-ca ll. Avoid making important life decisions for the first 48 hours No strenuous activity for 72 hours Drink plenty of water Continue previous outpatient medications Hold Metformin for 48 hours Discharge Follow-up: Specialty Provider NITA RAYO; 2 Weeks To Provider: NITA RAYO [[id number]] Patient's Preferred Location: [place] Discharge Disposition: HOME, ([facility]) When (Patients with risk for unplanned readmission score over 16 or those noted as Hospital Dependent should follow up within 7 days with PCP or primary DX spec ialist): 2 Weeks Cardiac (2 gm Sodium, Low Fat, Low Cholesterol) Diet; Texture: Regular. Texture Regular. Diabetic: NIDDM Discharge Condition - Discharge Condition: GOOD Discharge Activity Discharge Activity: As Tolerated Discharge Activity: No Heavy Lifting or Strenuous Activity Resume pre procedure diet Order Comments: Resume pre procedure diet No VTE Prophylaxis given- Patient low risk for VTE; Not ordered during hospitali zation Weight: In general, sudden weight gains or losses should be reported to your pro vider. Cardiac patients should weigh daily and notify their provider for a weig ht gain of 3 pounds per day or 5 pounds per week. Follow-up appointments: To schedule other appointments, call the [facility] at or . You may also make appointments online by going to [email or web address] and follow the Request Appointment quicklink. Take Home Medications These are medications ordered for you by your healthcare provider. Do not take a ny other medications or supplements unless advised by your healthcare provider. Patient's Medications START taking these medications No medications on file CONTINUE taking these medications which have NOT CHANGED AMLODIPINE 10 MG TABLET 10 mg daily. ASPIRIN 81 MG CHEWABLE TABLET Take 1 tablet by mouth daily. CIPROFLOXACIN HCL 500 MG TABLET 500 mg every 12 (twelve) hours. CLOPIDOGREL 75 MG TABLET Take 1 tablet by mouth daily. GLIPIZIDE-METFORMIN 5-500 MG PER TABLET 1 tablet 3 (three) times daily. INSULIN GLARGINE,HUM.REC.ANLOG (LANTUS SC) inject under the skin as needed. Up to 90 units LOSARTAN 50 MG TABLET 50 mg daily. METOPROLOL SUCCINATE XL 200 MG 24 HR TABLET Take 200 mg by mouth daily. OMEPRAZOLE 20 MG TABLET Take 20 mg by mouth every other day. PRAVASTATIN 20 MG TABLET Take 20 mg by mouth daily. START taking Modified Medications as Prescribed No medications on file STOP taking these medications No medications on file Medications: Your doctor may prescribe medicine to prevent blood clots. You ma y also have to take medicine to prevent chest pain. Take your medicine as usual after the procedure unless your doctor has told you to stop. Any changes in you r medicine's schedule will be explained to you. For questions regarding follow-up instructions call the [facility] Health Access Roger ambrocio at or For worsening symptoms/changing condition/problems or questions: During normal business hours call the [facility] Cardiac Manager Safe at . At nights, weekends or holidays, call the [facility] hospital conveyor system operator at . Ask the conveyor system operator to page the Cardiac Cath Fellow who is on-call. Emergency: Go to the closest emergency room or call [phone] Signs and Symptoms of a Problem: Call your doctor if you have any of the follow ing problems: Fever Swelling, pain, redness around the puncture site Foul smell or drainage from the site Odd changes in sensations, like numbness, tingling, coldness or pain in the a rm or leg where the catheter was inserted. If you start Bleeding: Apply pressure to the site. If the bleeding continues, h ave someone call your doctor and make arrangements to see him/her. Please follo w the doctor's directions. Our Goal is to Always Provide You with Very Good Care! We will be mailing you a survey, Please complete and return at your convenience. Thank You TOBACCO AVOIDANCE Exposure to tobacco either from smoking or from second hand (environmental) smok e or smokeless tobacco (snuff) is damaging to your health. This information is to encourage everyone to avoid tobacco exposure. It is recommended that you: ? If you smoke or use smokeless tobacco, we encourage you to quit. ? If you have already quit smoking, continue your good work! ? If you do not smoke or use smokeless tobacco, do not start. ? Avoid secondhand smoke. Additional Resources You may want to contact these organizations for further information on smoking a nd how to quit. [place] Lung Association, http://www.lungusa.org/stop-smoking/ [place] Cancer Society, http://www.cancer.org/Healthy/StayAwayfromTobacco/index [place] Heart Association, http://www.heart.org/HEARTORG/GettingHealthy/QuitSmo agnieszka/Quit-Smoking_[facility]_001085_SubHomePage.jsp * Attachments The following attachments cannot be sent through Care Everywhere.* Angioplasty, Peripheral ([place]) * Stent, Peripheral Arterial Angioplasty and ([place]) documented in this encounter Plan of Treatment Health Maintenance Due Date Last Done Comments HEPATITIS C (HCV) SCREEN 1945 DTaP,Tdap,and Td Vaccines 01/05/1964 (1 - Tdap) COLONOSCOPY 1995 Zoster Recombinant 1995 Vaccine (SHINGRIX) (1 of 2) Medicare Wellness Visit 2010 PNEUMOCOCCAL VACCINES 65+ 2010 (1 of 2 - PCV13) INFLUENZA VACCINE (#1) 2019 documented as of this encounter Procedures Comments Procedure Name Priority Date/Time Associated Diag nosis CATH PROCEDURE LOG Routine 06/19/2019 9:18 AM CDT BASIC METABOLIC PANEL Routine 06/19/2019 Jhoan tiyaneli (NA, K, CL, CO2, GLUCOSE, 7:20 AM CDT BUN, CREATININE, CA) CONSENT/REFUSAL FOR Routine 06/19/2019 DIAGNOSIS AND TREATMENT 6:54 AM CDT ASSIGNMENT OF BENEFITS Routine 06/19/2019 6:54 AM CDT documented in this encounter Results * BASIC METABOLIC PANEL (NA, K, CL, CO2, GLUCOSE, BUN, CREATININE, CA) (06/19/2019 7:20 AM CDT) NA 138 135 - 145 mmol/L [facility] K 4.6 3.5 - 5.0 mmol/L [facility] CL 103 98 - 108 mmol/L [facility] Y [facility] CO2 TOTAL 25 23 - 31 mmol/L [facility] AGAP 10 2 - 16 [facility] BUN 23 7 - 23 mg/dL [facility] GLUCOSE 243 (H) 70 - 110 mg/dL [facility] CREATININE 1.87 (H) 0.60 - 1.25 mg/dL [facility] CALCIUM 9.7 8.6 - 10.6 mg/dL [facility] eGFR 35.5 mL/min/1.73m2 [facility] Calculation [facility] ([facility] [place]) eGFR 43.0 mL/min/1.73m2 [facility] Calculation [facility] ([facility]) Specimen Blood Narrative Performed At Association of Glomerular Filtration Rate (GFR) and S taging of Kidney Disease* [facility] + + +------ + SERVICES-[place] | GFR (mL/min/1.73 m2)| With Kidney Damage| Without Kidney Damage CAMPUS + + -------+ + |>90 |Stage one| Normal + + -------+ + |60-89 |Stage two| Decreased GFR + + -------+ + |30-59 |Stage three| Stage three + + -------+ + |15-29 |Stage four | Stage four + + -------+ + |<15 (or dialysis)|Stag e five | Stage five + + -------+ + *Each stage assumes the associated GFR level has been in effect for at least three months.Stages 1 to 5, with or without kidney disease, indicate chronic kidney disease. Notes: Determination of stages one and two (with eGFR >59mL/min/1.73 m2) requires estimation of kidney damage fo r at least three months as defined by structural or functional abnormalities of the kidney, manifested by either: Pathological abnormalities or Markers o f kidney damage (including abnormalities in the composition of the blood or urin e or abnormalities in imaging tests). Performing Organization Address City/State/Zipcode Ph one Number [facility] CLIA: [id number], [address] [phone] 98 SERVICES-[facility] documented in this encounter Visit Diagnoses Diagnosis Claudication - Primary Peripheral vascular disease, unspecifie d documented in this encounter Administered Medications Action Date Dose Rate Site Medication Order MAR Action 06/19/2019 7:59 AM CDT 0.5 mg ALPRAZolam (XANAX) tablet 0.5 mg Given 0.5 mg, Oral, ONCE, 1 dose, Tue06/19/19 at 0815, Routine 06/19/2019 7:59 AM CDT 25 mg diphenhydrAMINE (BENADRYL) tablet 25 mg Given 25 mg, Oral, ONCE, 1 dose, Tue06/19/19 at 0815, Routine 06/19/2019 9:19 AM CDT 50 mcg FENTanyl PF (SUBLIMAZE (PF)) injection Given Slow IV Push, PRN, Starting Tue06/19/19 at 0849, Until Tue06/19/19 at 0919, Routine 50 mcg Given 06/19/2019 8:49 AM CDT 06/19/2019 9:21 AM CDT 10,000 Units heparin 1,000 unit/mL injection Given Slow IV Push, PRN, Starting Tue06/19/19 at 0921, Until Tue06/19/19 at 0921, Routine 06/19/2019 9:19 AM CDT 1 mg midazolam (VERSED) injection Given IV Push, PRN, Starting Tue06/19/19 at 0849, Until Tue06/19/19 at 0919, Routin e 2 mg Given 06/19/2019 8:50 AM CDT 2 mg Given 06/19/2019 8:49 AM CDT 06/19/2019 9:44 AM CDT 500 mcg nitroglycerin (TRIDIL) 2 mg in 10 mL D5W Given for Cardiac Cath Intravenous, PRN, Starting Tue06/19/19 at 0944, Until Tue06/19/19 at 0944, Routine 06/19/2019 9:48 AM CDT 100 mg protamine injection Given PRN, Starting Tue06/19/19 at 0948, Unti l Tue06/19/19 at 0948, Routine documented in this encounter Insurance Type Payer Benefit Subscriber ID Effective Phone Address Plan / Dates Group Medicare MEDICARE MEDICARE xxxxxxxxxx 2010-P [phone] P. O. ANA M X PART A & B resent [id number] [place] [phone] Medicare Supplement [facility] [id number] 2018-P P. O. [facility] resent [id number] MEDICARE [place] SUPPLEMENT MIGUEL [place]ONT[place]AYOR [id number] documented as of this encounter
--- OUTSIDE RECORDS SUMMARY | 2020-03-07 05:40 | XMS REPORT | Clinical Summary ---
Author Author Luevano Druze Organization Andreas Druze Address Unknown Phone Unavailable Care Team Providers Care Vice President Of Academic Affairs Name Role Phone Delio Heredia MD PCP Allergies No Known Allergies Medications End Date Status Medication Sig Dispensed Refills Start Date Active amLODIPine (NORVASC) 5 mg TAKE ONE (1) 3 01/30 tablet TABLET(S) BY 7 MOUTH ONCE A DAY. Active glipizide-metformin TAKE ONE (1) 3 (METAGLIP) 5-500 mg per TABLET(S) BY 7 tablet MOUTH THREE TIMES A DAY. Active LANTUS 100 unit/mL INJECT 90 3 injection (vial) UNITS 7 DIRECTED ONCE DAILY. Active losartan-hydrochlorothiaz TAKE ONE (1) 01/30 chikis (HYZAAR) 100-25 mg TABLET(S) BY 7 per tablet MOUTH ONCE A DAY. Active metoprolol succinate XL Take 200 mg 3 (TOPROL-XL) 200 mg 24 hr by mouth once 7 tablet daily. Active omeprazole (PriLOSEC) 20 TAKE ONE (1) 4 01/29 MG capsule CAPSULE(S) BY 7 MOUTH ONCE [...] Used Never Smoker Smokeless Tobacco: Never Used Drinks/Week oz/Week Comments Alcohol Use No Sex Assigned at Date Recorded Not [...] (1 of 2 - PCV13) INFLUENZA VACCINE 05/31/2020 Implants Device Identifier Shelf Expiration Date Model / Serial / L ot Implanted Type Area Manufactur er 11/30/2018 LYSSA [id number] 45 / / [id number] [employer] S[employer] Corkscrew Ft Biocmpst W/ Orthopedic N/A: N/A ARTHREX Two Sz 2 Fibrwr 4.5x15mm - [employer] [id number] Implants Implanted: 04/22/2017 at [facility] (Quantity not on file) 11/30/2018 LYSSA 1927B 45 / / [id number] [employer]ks[employer] Ft Biocmpst W/ Orthopedic N/A: N/A ARTHREX Two Sz 2 Fibrwr 4.5x15mm - [employer] [id number] Implants Implanted: 04/22/2017 at [facility] (Quantity not on file) 11/30/2018 LYSSA [id number] 45 / / [id number] [employer] S[employer] Corkscrew Ft Biocmpst W/ Orthopedic N/A: N/A ARTHREX Two Sz 2 Fibrwr 4.5x15mm - [employer] [id number] Implants Implanted: 04/22/2017 at [facility] (Quantity not on file) 12/28/2018 AR [id number] / / [id number] [employer] S[employer] Swivelock Biocmpst C Orthopedic N/A: N/A ARTHREX Vntd 4.75x19.1mm - [id number] [employer] Implanted: 04/22/2017 at [facility] (Quantity not on file) 12/28/2018 [place] [id number] / / [id number] [employer] S[employer] Swivelock Biocmpst C Orthopedic N/A: N/A ARTHREX Vntd 4.75x19.1mm - [id number] [employer] Implanted: 04/22/2017 at [facility] (Quantity not on file) Results Not on fileafter 03/07/2019 Insurance Type Payer Benefit Subscriber ID Effective Phone Address Plan / Dates Group Medicare MEDICARE MEDICARE xxxxxxxxxx 2010-P [place], PART A AND resent [place] B Commercial AARP AARP xxxxxxxxxxx 2011-P SUPPLEMENT resent [phone] Advance Directives For more information, please contact: [phone] Patient Advanced Practice Professional Explanation Type Date Recorded Advance Directives, 03/26/2017 3:32 PM 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
--- OUTSIDE RECORDS SUMMARY | 2020-03-07 05:40 | XMS REPORT | Summary of Care ---
Author Author [facility] - Health Organization [facility] - Health Address Unknown Phone Unavailable Care Team Providers Care Floral Specialist Name Role Phone Christiano Ceja PCP Encounter Details Care Team Description Date Type Department Doctor Unassigned, [place] [address] [place] [address] 06/13/2019 Orders Only [facility] [address] [place] [address] Allergies Comments Active Allergy Reactions Severity Noted Date Penicillins Swelling 06/11/2019 documented as of this encounter (statuses as of 06/13/2019) Medications End Date Status Medication Sig Dispensed Refills Start Date Active ciprofloxacin HCl 500 mg 500 mg every 0 04/22 tablet 12 (twelve) 9 hours. Active amLODIPine 10 mg tablet 10 mg daily. 0 9 Active glipizide-metformin 5-500 1 tablet 3 3 03/01/201 mg per tablet (three) times 9 daily. [...] as of this encounter (statuses as of 06/13/2019) Active Problems Not on filedocumented as of this encounter (statuses as of 06/13/2019) Social History Date Tobacco Use Types Packs/Day Years Used Never Assessed Sex Assigned at Date Recorded Not on file Industry Job Start Date Occupation Not on file Not on file Not on file Travel End Travel History Travel Start No recent travel history available. documented as of this encounter Last Filed Vital Signs Not on filedocumented in this encounter Plan of Treatment Health Maintenance Due Date Last Done Comments HEPATITIS C (HCV) SCREEN 1945 DTaP,Tdap,and Td Vaccines 01/05/1964 (1 - Tdap) COLONOSCOPY 1995 Zoster Recombinant 1995 Vaccine (SHINGRIX) (1 of 2) Medicare Wellness Visit 2010 PNEUMOCOCCAL VACCINES 65+ 2010 (1 of 2 - PCV13) INFLUENZA VACCINE 07/01/2019 documented as of this encounter Procedures Comments Procedure Name Priority Date/Time Associated Diag nosis EXTERNAL PROVIDER RECORDS Routine 06/13/2019 12:01 AM CDT documented in this encounter Results Not on filedocumented in this encounter Insurance Type Payer Benefit Subscriber ID Effective Phone Address Plan / Dates Group Medicare MEDICARE MEDICARE xxxxxxxxxx 2010-P [phone] P. O. ANA M X PART A & B resent [id number] MIGUEL MOORE [id number] Medicare Supplement [facility] [id number] 2018-P P[facility] O. [facility] resent [id number] MEDICARE [place] SUPPLEMENT MIGUEL MONTEMAYOR [id number] documented as of this encounter
--- OUTSIDE RECORDS SUMMARY | 2020-03-07 05:40 | XMS REPORT | Summary of Care ---
Author Author [facility] - Health Organization [facility] - Health Address Unknown Phone Unavailable Care Team Providers Care Client Evaluator Name Role Phone Ceja Christiano PCP Reason for Visit * Reason Comments Pre-Visit Planning Encounter Details Care Team Description Date Type Department Manolo Patel MD [address] [facility] [address] [place] [address] Pre-Visit Planning 06/18/2019 Telephone [facility] Heart C enter - Chief Operator Hydroformer, [address] [phone] Allergies Comments Active Allergy Reactions Severity Noted Date Penicillins Swelling 06/11/2019 documented as of this encounter (statuses as of 06/18/2019) Medications End Date Status Medication Sig Dispensed [...] as of this encounter (statuses as of 06/18/2019) Active Problems Not on filedocumented as of this encounter (statuses as of 06/18/2019) Social History Date Tobacco Use Types Packs/Day Years Used Never Assessed Sex Assigned at Date Recorded Not on file Industry Job Start Date Occupation Not on file Not on file Not on file Travel End Travel History Travel Start No recent travel history available. documented as of this encounter Last Filed Vital Signs Not on filedocumented in this encounter Plan of Treatment Care Team Description Date Type Specialty Manolo Patel MD [address] [facility] [address] [place] [address] 3, Clc Cardiac Proc Room 06/19/2019 Hospital Cardiac Chief Operator Hydroformer Encounter Health Maintenance Due Date Last Done Comments HEPATITIS C (HCV) SCREEN 1945 DTaP,Tdap,and Td Vaccines 01/05/1964 (1 - Tdap) COLONOSCOPY 1995 Zoster Recombinant 1995 Vaccine (SHINGRIX) (1 of 2) Medicare Wellness Visit 2010 PNEUMOCOCCAL VACCINES 65+ 2010 (1 of 2 - PCV13) INFLUENZA VACCINE (#1) 2019 documented as of this encounter Results Not on filedocumented in this encounter Insurance Type Payer Benefit Subscriber ID Effective Phone Address Plan / Dates Group Medicare MEDICARE MEDICARE xxxxxxxxxx 2010-P [phone] P. O. ANA M X PART A & B resent [id number] MIG[place]EL [place] [id number] Medicare Supplement [facility] [id number] 2018-P P. O. [facility] resent [id number] MEDICARE [place] SUPPLEMENT MIGUEL MONTEMAYOR [id number] documented as of this encounter
--- OUTSIDE RECORDS SUMMARY | 2020-03-07 05:40 | XMS REPORT | Summary of Care ---
Author Author [facility] - Health Organization [facility] - Health Address Unknown Phone Unavailable Care Team Providers Care Trailer Chief Name Role Phone Christiano Ceja PCP Encounter Details Care Team Description Date Type Department Doctor Unassigned, [place] [address] [place] [address] 06/15/2019 Orders Only [facility] [address] [place] [address] Allergies Comments Active Allergy Reactions Severity Noted Date Penicillins Swelling 06/11/2019 documented as of this encounter (statuses as of 06/15/2019) Medications End Date Status Medication Sig Dispensed [...] as of this encounter (statuses as of 06/15/2019) Active Problems Not on filedocumented as of this encounter (statuses as of 06/15/2019) Social History Date Tobacco Use Types Packs/Day [...] Date Type Specialty Manolo Patel MD [address] [facility] [address] [place] [address] [phone], Clc Cardiac Proc Room 06/19/2019 Appointment Cardiac Automobile Carpets Molder Health Maintenance Due Date Last Done Comments [...] Associated Diag nosis EXTERNAL PROVIDER RECORDS Routine 06/15/2019 12:01 AM CDT documented in this encounter Results Not on filedocumented in this encounter Insurance Type Payer Benefit Subscriber ID Effective Phone Address Plan / Dates Group Medicare MEDICARE MEDICARE xxxxxxxxxx 2010-P [phone] P. O. ANA M X PART A & B resent [id number] MIGUEL MOORE [phone] Medicare Supplement [facility] [id number] 2018-P P. O[facility] resent [id number] MEDICARE [place] SUPPLEMENT MIGUEL MONTEMAYOR [id number] documented as of this encounter
--- OUTSIDE RECORDS SUMMARY | 2020-03-07 05:40 | XMS REPORT | Summary of Care ---
Author Author [facility] - Health Organization [facility] - Health Address Unknown Phone Unavailable Care Team Providers Care Regional Program Manager Name Role Phone Christiano Ceja PCP Reason for Referral * Other (Routine) Referred By Contact Referred To Contact Status Reason Specialty Diagnoses / Procedures Vero Germain FNP [address] [place] [phone] Nita Rayo MD [address] [facility] [address] [place] [address] New Request Diagnoses PVD (peripheral vascular disease) P rocedures Discharge Follow-up: Specialty Provider NITA RAYO; 2 Weeks Reason for Visit * (Routine) Referred By Contact Referred To Contact Status Reason Specialty Diagnoses / Procedures Nita Rayo MD [address] [place] [address] [address] [place] [address] Nita Rayo MD [address] [facility] [address] [place] [address] Closed IM-CARDIOVASCULA Diagnoses R DISEASE / PERRI-CECILIA ANGIO Cardiac Machine Tracer + PCI P rocedures CHG ANGIO AORTOBIFEMORAL W CATH PERIPHERAL ANGIO Encounter Details Care Team Description Date Type Department Nita Rayo MD [address] [facility] [address] [place] [address] [phone], Clc Cardiac Proc Room PVD (peripheral vascular disease) (Prima ry Dx); Pre-procedure lab exam ; History of hypertension 06/12/2019 [facility] Heart enter Encounter - Machine Tracer, [address] [phone] Allergies Comments Active Allergy Reactions [...] glipizide-metformin 5-500 1 tablet 3 3 03/01 mg per tablet (three) times 9 daily. [...] Signs Reading Time Taken Comments Vital Sign 151/81 06/12/2019 9:56 PM CDT standing Blood Pressure 78 06/12/2019 9:53 PM CDT Pulse 36.8 C (98.3 F) 06/12/2019 1:35 PM CDT Temperature 19 06/12/2019 9:56 PM CDT Respiratory Rate 96% 06/12/2019 9:56 PM CDT Oxygen Saturation - - Inhaled Oxygen Concentration 88.9 kg (196 lb) 06/12/2019 1:47 PM CDT Weight 182.9 cm (6') 06/12/2019 1:47 PM CDT Height 26.58 06/12/2019 1:47 PM CDT Body Mass Index documented in this encounter Discharge Instructions * Instructions* Dot Choudhury RN - 06/12/2019 Patient Discharge Instructions Follow instructions as indicated below: [...] pain, fever, and any discharge call the Machine Tracer ( during hours) Order Comments: At nights, weekends or holidays, call the [facility] hospital gang head saw operator at . Ask the gang head saw operator to page the Cardiac Cath Fellow who is on-ca ll. Avoid making important life decisions for the first 48 hours No strenuous activity for 72 hours Drink plenty of water Continue previous outpatient medications Hold Metformin for 48 hours Discharge Follow-up: Specialty Provider NITA RAYO; 2 Weeks To Provider: NITA RAYO [[id number]] Patient's Preferred Location: [place] Discharge Disposition: HOME, ([facility]) When (Patients with risk for unplanned readmission score over 16 or those noted as Hospital Dependent should follow up within 7 days with PCP or primary DX spec ialist): 2 Weeks Cardiac (2 gm Sodium, Low Fat, Low Cholesterol) Diet; Texture: Regular. Texture Regular. Diabetic: IDDM Discharge Condition - Discharge Condition: GOOD Discharge [...] appointments: To schedule other appointments, call the [facility] at or . You may also make appointments online by going to [email or web address] and follow the Request Appointment quicklink. Take Home Medications These are medications ordered for you by your healthcare provider. Do not take a ny other medications or supplements unless advised by your healthcare provider. Patient's Medications START taking these medications ASPIRIN 81 MG CHEWABLE TABLET Take 1 tablet by mouth daily. CLOPIDOGREL 75 MG TABLET Take 1 tablet by mouth daily. CONTINUE taking these medications which have NOT CHANGED AMLODIPINE 10 MG TABLET 10 mg daily. CIPROFLOXACIN HCL 500 MG TABLET 500 mg every 12 (twelve) hours. GLIPIZIDE-METFORMIN 5-500 MG PER TABLET 1 tablet [...] For questions regarding follow-up instructions call the [facility] Roger ambrocio at or For worsening symptoms/changing condition/problems or questions: During normal business hours call the [facility] Cardiac Machine Tracer at . At nights, weekends or holidays, call the [facility] hospital gang head saw operator at . Ask the gang head saw operator to page the Cardiac Cath Fellow who is on-call. Emergency: Go to the closest emergency room or call [phone] Signs and Symptoms of a Problem: Call [...] on smoking a nd how to quit. [place] [employer], http://www.lungusa.org/stop-smoking/ [place] [employer], http://www.cancer.org/Healthy/StayAwayfromTobacco/index [place] [employer], http://www.heart.org/HEARTORG/GettingHealthy/QuitSmo agnieszka/Quit-Smoking_[facility]_001085_SubHomePage.jsp documented in this encounter Plan of Treatment [...] Procedure Name Priority Date/Time Associated Diag nosis PROTHROMBIN TIME / INR Routine 06/12/2019 PVD (pe ripheral vascular 2:05 PM CDT disease) BASIC METABOLIC PANEL Routine 06/12/2019 PVD (per ipheral vascular (NA, K, CL, CO2, GLUCOSE, 2:05 PM CDT disease) BUN, CREATININE, CA) CBC WITH DIFFERENTIAL Routine 06/12/2019 History of hypertension 1:50 PM CDT Pre-procedure lab exam PVD (peripheral vascular disease) CBC WITH DIFF Routine 06/12/2019 History of hype rtension 1:50 PM CDT Pre-procedure lab exam PVD (peripheral vascular disease) documented in this encounter Results * BASIC METABOLIC PANEL (NA, K, CL, CO2, GLUCOSE, BUN, CREATININE, CA) (06/12/2019 2:05 PM CDT) NA 138 135 - 145 mmol/L [facility] K 4.2 3.5 - 5.0 mmol/L [facility] CL 101 98 - 108 mmol/L [facility] LAB[facility]ATOR Y [facility] CO2 TOTAL 27 23 - 31 mmol/L [facility] AGAP 10 2 - 16 [facility] BUN 22 7 - 23 mg/dL [facility] GLUCOSE 103 70 - 110 mg/dL [facility] CREATININE 2.01 (H) 0.60 - 1.25 mg/dL [facility]ORAT ORY [facility] CALCIUM 9.5 8.6 - 10.6 mg/dL [facility] RY [facility] eGFR 32.6 mL/min/1.73m2 [facility] Calculation SERVICES-CLEAR ([facility] Camb[place]ian) eGFR 39.6 mL/min/1.73m2 [facility] Calculation [facility] ([facility] Cambod[facility]) Specimen Blood Narrative Performed At Association of Glomerular Filtration Rate (GFR) and S taging of Kidney Disease* [facility] + + +------ + [facility] | GFR (mL/min/1.73 m2)| With Kidney Damage| Without Kidney Damage [place] + + -------+ + |>90 |Stage one| [...] abnormalities in imaging tests). Performing Organization Address [facility] one Number [facility] CLIA: [id number], [address] [address] 98 [facility] * PROTHROMBIN TIME / INR (06/12/2019 2:05 PM CDT) Pathologist [facility] PROTIME PATIENT 13.1 (H) 10.1 - 12.6 Seconds [facility] INR 1.2Comment: Normal INR <1.1; [facility] ORATORY Warfarin Therapeutic range 2.0 [facility] to 3.0 or 2.5 to 3.5, [facility] depending upon the indications. Specimen Blood Performing Organization Address [facility] one Number [facility] CLIA: [id number], [address] [id number] 98 [facility] * CBC WITH DIFFERENTIAL (06/12/2019 1:50 PM CDT) WBC 8.31 4.20 - 10.70 [facility] 10*3/L [facility] RBC 4.06 (L) 4.26 - 5.52 10*6/L [facility] HGB 11.6 (L) 12.2 - 16.4 g/dL [facility] HCT 36.2 (L) 38.4 - 49.3 % [facility] 89.2 81.7 - 95.6 fL [facility] 28.6 26.1 - 32.7 pg [facility] MCHC 32.0 31.2 - 35.0 g/dL [facility] RDW-SD 40.2 38.5 - 51.6 fL [facility] RDW-CV 12.2 12.1 - 15.4 % [facility] PLT 322 150 - 328 10*3/L [facility] MPV 9.9 9.8 - 13.0 fL [facility] IPF % 2.7Comment: Platelet count 1.2 - 10.7 % UTM B LABORATORY measured by fluorescence [facility]. [facility] NRBC/100 WBC 0.0 0.0 - 10.0 /100 WBCs [facility] NRBC x10^3 <0.01 10*3/L [facility] GRAN MAT (NEUT) 68.1 % [facility] Y % [facility] IMM GRAN % 0.20 % [facility] LYMPH % 16.7 % [facility] MONO % 10.8 % [facility] EOS % 3.6 % [facility] BASO % 0.6 % [facility] GRAN MAT 5.65 1.99 - 6.95 10*3/uL [facility] x10^3(ANC) [facility] IMM GRAN x10^3 <0.03 0.00 - 0.06 10*3/uL [facility] LYMPH x10^3 1.39 1.09 - 3.23 10*3/uL [facility] MONO x10^3 0.90 0.36 - 1.02 10*3/uL [facility] EOS x10^3 0.30 0.06 - 0.53 10*3/uL [facility] BASO x10^3 0.05 0.01 - 0.09 10*3/uL [facility] Specimen Blood Performing Organization Address City/State/Zipcode Ph one Number [facility] CLIA: [id number], [address] [place], [place] [address] [facility] documented in this encounter Visit Diagnoses Diagnosis PVD (peripheral vascular disease) - Bernarda denney Peripheral vascular disease, unspecifie d Pre-procedure lab exam Pre-procedural laboratory examination History of hypertension Personal history of other diseases of c irculatory system documented in this encounter Administered Medications Action Date Dose Rate Site Medication Order MAR Action 06/12/2019 3:36 PM CDT 0.5 mg ALPRAZolam (XANAX) tablet 0.5 mg Given 0.5 mg, Oral, ONCE, 1 dose, Tue06/12/19 at 1645, Routine 06/12/2019 5:03 PM CDT 81 mg aspirin chewable tablet Given Oral, PRN, Starting Tue06/12/19 at 1703 , Until Tue06/12/19 at 1703, Routine 06/12/2019 3:37 PM CDT 50 mg diphenhydrAMINE (BENADRYL) tablet 50 mg Given 50 mg, Oral, ONCE, 1 dose, Tue06/12/19 at 1645, Routine 06/12/2019 4:12 PM CDT 25 mcg FENTanyl PF (SUBLIMAZE (PF)) injection Given Slow IV Push, TITRATE - FOR PROCEDURE USE, 1 dose, Starting Tue06/12/19 at 1612, Until Tue06/12/19 at 1612, Routin e 06/12/2019 4:13 PM CDT 25 mcg FENTanyl PF (SUBLIMAZE (PF)) injection Given Slow IV Push, TITRATE - FOR PROCEDURE USE, 1 dose, Starting Tue06/12/19 at 1613, Until Tue06/12/19 at 1613, Routin e 06/12/2019 4:30 PM CDT 50 mcg FENTanyl PF (SUBLIMAZE (PF)) injection Given Slow IV Push, PRN, Starting Tue06/12/19 at 1630, Until Tue06/12/19 at 1630, Routine 06/12/2019 4:35 PM CDT 10,000 Units heparin 1,000 unit/mL injection Given Slow IV Push, PRN, Starting Tue06/12/19 at 1635, Until Tue06/12/19 at 1635, Routine 06/12/2019 4:34 PM CDT 10 mL lidocaine 1% (PF) (XYLOCAINE) injection Given Infiltration, PRN, Starting Tue06/12/19 at 1634, Until Tue06/12/19 at 1634, Routine 06/12/2019 4:12 PM CDT 1 mg midazolam (VERSED) injection Given IV Push, TITRATE - FOR PROCEDURE USE, 1 dose, Starting Tue06/12/19 at 1612, Until Tue06/12/19 at 1612, Routine 06/12/2019 4:13 PM CDT 1 mg midazolam (VERSED) injection Given IV Push, TITRATE - FOR PROCEDURE USE, 1 dose, Starting Tue06/12/19 at 1613, Until Tue06/12/19 at 1613, Routine 06/12/2019 4:30 PM CDT 2 mg midazolam (VERSED) injection Given IV Push, PRN, Starting Tue06/12/19 at 1622, Until Tue06/12/19 at 1630, Routin e 1 mg Given 06/12/2019 4:22 PM CDT 06/12/2019 5:30 PM CDT 1,000 mL 75 mL/hr NaCl 0.9% (NS) IV infusion 1,000 mL New Bag at 75 mL/hr, IV Infusion, CONTINUOUS, Starting Tue06/12/19 at 1730, Until Tue06/12/19 at 2129, Routine 06/12/2019 5:03 PM CDT 60 mg prasugrel (EFFIENT) tablet Given Oral, PRN, Starting Tue06/12/19 at 1703 , Until Tue06/12/19 at 1703, Routine 06/12/2019 4:53 PM CDT 100 mg protamine injection Given PRN, Starting Tue06/12/19 at 1653, Unti l Tue06/12/19 at 1653, Routine documented in this encounter Insurance Type Payer Benefit Subscriber ID Effective Phone Address Plan / Dates Group Medicare MEDICARE MEDICARE xxxxxxxxxx 2010-P [phone] P. O. ANA M X PART A & B resent [id number] MIGUEL [place]ORE [id number] Medicare Supplement [facility] [id number] 2018-P P. O. [facility] resent [id number] MEDICARE [place] SUPPLEMENT MIGUEL MONTEMAYOR [id number] documented as of this encounter"
--- OUTSIDE RECORDS SUMMARY | 2020-03-07 05:41 | XMS REPORT | Summary of Care ---
Author Author [facility] - [facility] Organization [facility] - Health Address Unknown Phone Unavailable Care Team Providers Care Margin Analyst Name Role Phone Christiano Ceaj PCP Encounter Details Care Team Description Date Type Department Doctor Unassigned, [place] [address] [place] [address] 06/21/2019 Orders Only [facility] [address] [place] [address] Allergies Comments Active Allergy Reactions Severity Noted Date Penicillins Swelling 06/11/2019 documented as of this encounter (statuses as of 06/21/2019) Medications End Date Status Medication Sig Dispensed [...] as of this encounter (statuses as of 06/21/2019) Active Problems Not on filedocumented as of this encounter (statuses as of 06/21/2019) Social History Date Tobacco Use Types Packs/Day [...] Associated Diag nosis EXTERNAL PROVIDER RECORDS Routine 06/21/2019 12:01 AM CDT documented in this encounter Results Not on filedocumented in this encounter Insurance Type Payer Benefit Subscriber ID Effective Phone Address Plan / Dates Group Medicare MEDICARE MEDICARE xxxxxxxxxx 2010-P [phone] [facility] [facility] A [facility] B resent [id number] [place] [id number] Medicare Supplement AARP-[facility] [id number] 2018-P [facility] resent [id number] MEDICARE [place] SUPPLEMENT [place] [id number] documented as of this encounter
[2020-03-07 08:20] VITALS: BP 125/74
--- NOTE | 2020-03-07 08:56 | Operative Report ---
DATE OF PROCEDURE: 03/07/2020 SURGEON: Swetha Wilkins DPM PREOPERATIVE DIAGNOSES: 1. Left foot osteomyelitis. 2. Left foot open ulceration, stage III. POSTOPERATIVE DIAGNOSES: 1. Left foot osteomyelitis. 2. Left foot open ulceration, stage III. 3. Left foot soft tissue mass. PLANNED PROCEDURES: 1. Excision of tarsal bone, left foot. 2. Wound flap closure. ANESTHESIA: General with a postoperative block consisting of 20 mL of 0.5% Marcaine plain. HEMOSTASIS: Pneumatic thigh tourniquet set at 250 mmHg for a total time of approximately 25 minutes. MATERIALS: 3-0 nylon. ESTIMATED BLOOD LOSS: Less than 10 mL. PATHOLOGY: Bone and soft tissue sent for gross specimen. PROCEDURE NOTE: The patient was seen in the preoperative waiting room, where the correct procedure and site were identified. The patient was brought to the operating room and placed on the operating table in the supine position. General anesthesia was initiated. At this time, a well-padded pneumatic tourniquet was placed about the patient's left ankle. The left foot, ankle, and leg was then scrubbed, prepped, and draped in the usual aseptic manner. The left foot, ankle, and leg was exsanguinated with gravity and the pneumatic ankle tourniquet was inflated to 250 mmHg for a total time of approximately 25 minutes. Attention was directed to the plantar aspect of the patient's left cuneiform navicular joint where an approximately 0.5 cm x 0.8 cm deep open ulceration is noted. There are hyperkeratotic borders to the wound. Utilizing a #15 blade. The wound was debrided of all necrotic and devitalized tissue. Next, a 5 cm converging semi-elliptical incisions were made along the medial aspect of the patient's left plantar aspect of the navicular cuneiform joint excising the ulceration. It was noted upon incision that a soft tissue mass is noted along the medial border of the navicular along the course of the posterior tibial tendon. This was excised and passed off to the back table, leaving the tendon clean and intact. That soft tissue mass was noted to be mobile and not fluid-filled. It was passed off to the pathology for gross specimen. Next, dissection was carried down to the plantar aspect of the navicular cuneiform joint leaving the posterior tibial tendon and peroneus longus insertion intact. Utilizing a sagittal saw as well as an osteotome and mallet, the plantar aspect of the navicular cuneiform joint was resected and passed off to the back table. Next, utilizing a rongeur, the plantar aspect of the medial column was then debrided to anatomic alignment, as well as with a hand rasp. Next, the wound was then copiously irrigated with sterile saline mixed with bacitracin. The skin was reapproximated utilizing simple interrupted sutures with 3-0 nylon. The incision site was then dressed with Adaptic, Betadine-soaked, 4x4s, Kerlix, Fausto wrap, and a postop shoe. The patient tolerated the procedure and anesthesia well. The patient was transferred to the postoperative recovery unit with vital signs stable and vascular status intact. The patient was monitored there for a short period of time before being sent home with the following written and oral instructions. 1. Keep the dressing clean, dry, and intact. 2. The patient is to remain nonweightbearing to the left lower extremity to avoid any ambulation until being seen in the office. 3. The patient is given the office number and instructed to contact us if any problems arise. FATIMAH Richter/PATY /[id number]
== END | disposition home or self-care (01) ==
LOC: OR 05:29
PROVIDERS: ATTEND Podiatrist Foot & Ankle Surgery
DX: E11.69 Type 2 diabetes mellitus with other specified complication (principal); E11.621 Type 2 diabetes mellitus with foot ulcer; M86.9 Osteomyelitis, unspecified; M79.89 Other specified soft tissue disorders; I25.10 Atherosclerotic heart disease of native coronary artery without angina pectoris; I10 Essential (primary) hypertension; Z88.1 Allergy status to other antibiotic agents; Z88.0 Allergy status to penicillin; Z88.2 Allergy status to sulfonamides; Z98.61 Coronary angioplasty status
CPT/HCPCS: 28122; 36415 ×2; 71046; 80048; 82948; 85025; 87635; 88305; 88311; 93005; J2001; J2405; J2704; J3370; 88304; J1100